=== PATIENT | female | born 1945 | race Caucasian/White ===

== ENCOUNTER → 2017-09-12 | Outpatient (CLI) | payer MEDICARE, OTHER ==
[~2017-09-12] MED LIST: ALBU8HFA2 INH; ALBU90OI INH; ALBU90OI6 INH; AMITIZA PO; ANAS1 PO; ANORO ELLIPTA1 EACH INH; ARNUITY ELLIPT50 MCG IH; ASPI325 PO; ASPI81EC PO; Amitiza24 MCG PO; Amitiza8 MCG PO; Aspir 8181 MG PO; BISA5EC PO; CALCAVITD PO; CELE200 PO; CEPH500 PO; CIPR500 PO; CITA20 PO; DULCOLAX STOOL100 MG PO; FISH1000 PO; FLUSAL115; FLUT44OIA INH; GABA300 PO; GAVILAX17 GM PO; HYDACE5 PO; Kristalose20 GM PO; MELA3 PO; METF500C PO; METO25ER PO; Macrobid 100 M100 MG PO; Neurontin 300300 MG PO; Nitrostat0.4 MG SL; ONDA4 PO; PHENA100 PO; PRAM.125 PO; PRAM.5 PO; PRAV20 PO; PROM25 PO; Phenergan25 M1; Pravastatin Sod40 MG PO; Prinivil10 MG PO; Pyridium100 MG PO; Pyridium200 MG PO; RANI150 PO; TIOT18; TIOT18 IH; UBID10 PO; VENL150ER PO; VITAMIN B-122000 MCG PO; VITAMIN D-32000 UNIT PO; Ventolin/Prove6.7 GM INH; Vitamin C1000 M1 PO; WARF3 PO; WARF4 PO; XARELTO10 MG PO; [UNRECOGNIZED DRUG - OTHER]; [UNRECOGNIZED DRUG - OTHER] PO
== END ==
LOC: LAB EV 14:48
DX: N30.01 Acute cystitis with hematuria (principal)
CPT/HCPCS: 87086

== ENCOUNTER → 2018-01-23 | Outpatient (CLI) | payer MEDICARE, OTHER ==
[~2018-01-23] MED LIST changes: -ARNUITY ELLIPT50 MCG IH; -Amitiza24 MCG PO; -DULCOLAX STOOL100 MG PO; -METO25ER PO; -XARELTO10 MG PO
[2018-01-23 14:54] LABS: BASOPHILS ABSOLUTE AUTO 0.04 K/mm3 (0.00-0.23); BASOPHILS PERCENT AUTO 1 % (0-2); EOSINOPHILS ABSOLUTE AUTO 0.08 K/mm3 (0.00-0.68); EOSINOPHILS PERCENT AUTO 1 % (0-6); Hematocrit 35.5 % (33.0-51.0); Hemoglobin 11.4 g/dL (11.5-16.0); IMMATURE GRAN ABSOLUTE AUTO 0.01 K/mm3 (0.00-0.10); IMMATURE GRAN PERCENT AUTO 0 % (0-1); LYMPHOCYTES ABSOLUTE AUTO 1.28 K/mm3 (0.84-5.20); LYMPHOCYTES PERCENT AUTO 22 % (21-46); MONOCYTES PERCENT AUTO 5 % (4-13); Mean Corpuscular HGB 28.3 pg (26.0-34.0); Mean Corpuscular HGB Conc 32.1 g/dL (31.5-36.5); Mean Corpuscular Volume 88 fL (80-100); Mean Platelet Volume 9.7 fL (9.1-12.4); NEUTROPHILS ABSOLUTE AUTO 4.16 K/mm3 (1.96-9.15); NEUTROPHILS PERCENT AUTO 71 % (41-73); Platelet Count 246 K/mm3 (150-400); RDW Coefficient Variation 13.6 % (11.7-14.2); RDW Standard Deviation 44.1 fL (35.1-46.3); Red Blood Cell Count 4.03 M/mm3 (3.80-5.20); White Blood Cell Count 5.87 K/mm3 (4.00-11.30)
[2018-01-23 15:09] LABS: Albumin, Blood 3.7 g/dL (3.4-5.0); Albumin/Globulin Ratio 1.2 (0.8-1.8); Bilirubin, Total 0.3 mg/dL (0.1-1.0); Calcium, Blood 9.4 mg/dL (8.5-10.1); Globulin, Blood 3.2 g/dL (2.2-4.0); Potassium, Blood 4.2 mmol/L (3.5-5.5); Total Protein, Blood 6.9 g/dL (6.4-8.2)
== END | disposition home or self-care (01) ==
LOC: LAB SHORT 14:50 → LAB EV 14:50
PROVIDERS: Physician Assistant
DX: R10.11 Right upper quadrant pain (principal)
CPT/HCPCS: 80053; 83690; 85025

== ENCOUNTER 2018-09-10 10:30 | Day surgery (SDC) | payer MEDICARE, OTHER ==
[~2018-09-10] VITALS: Ht 170.2 cm; Wt 64.2 kg
[~2018-09-10 10:30] MED LIST changes: +ARNUITY ELLIPT50 MCG IH; +Amitiza24 MCG PO; +DULCOLAX STOOL100 MG PO; +METO25ER PO; +XARELTO10 MG PO
--- NOTE | 2018-09-10 13:57 | NUR ---
09/10/18 Toy7 Harmony Delvalle AT APPROXIMATELY 1304 THE PT BEGAN TO DESATURATE, BAG VALVE MASK APPLIED AND THE PROCEDURE WAS STOPPED UNTIL SATS RETURNED AND SEDATION WAS ADEQUATELY OBTAINED. ADDITIONAL NURSE ORSC.ROSEANNE ENTERED THE ROOM TO HELP WITH AIRWAY AT 1305. CHARGE NURSE NOTIFIED. SATS RETURNED TO GREATER THAN 94% WITH BAG MASK AND JAW LIFT FROM RN. DR LOO ARRIVED AT 1306 TO PROVIDE ANESTHESIA ASSISTANCE. DOSES FROM 1306 ON WERE ORDERED BY DR LOO, INCLUDING 2MG IV VERSED. FROM 1306 THROUGHOUT THE UPPER ENDOSCOPY VSS. PT DID CONTINUE TO MOVE THROUGHOUT THE UPPER ENDOSCOPY AND COLONOSCOPY. SEE NURSES NOTES AND ANESTHESIA RECORD.
--- NOTE | 2018-09-10 15:02 | NUR ---
09/10/18 1502 Harmony Delvalle PT IS RESTING WITH EYES CLOSED AT THIS TIME. VSS. SATS ARE 100% ON 3L O2 VIA NASAL CANNULA SINCE ARRIVING TO STEP DOWN. O2 DISCOUNTINUED AT 1502.
== END 2018-09-10 15:52 | disposition home or self-care (01) ==
LOC: ORSCSDS 10:30
PROVIDERS: Internal Medicine Gastroenterology
PROC: 0DBP8ZX Excision of Rectum, Via Natural or Artificial Opening Endoscopic, Diagnostic (ICD-10-PCS; principal; 2018-09-10 12:00)
PROC: 0DBN8ZX Excision of Sigmoid Colon, Via Natural or Artificial Opening Endoscopic, Diagnostic (ICD-10-PCS; principal; 2018-09-10 12:00)
PROC: 0DBM8ZX Excision of Descending Colon, Via Natural or Artificial Opening Endoscopic, Diagnostic (ICD-10-PCS; principal; 2018-09-10 12:00)
PROC: 0DB68ZX Excision of Stomach, Via Natural or Artificial Opening Endoscopic, Diagnostic (ICD-10-PCS; principal; 2018-09-10 12:00)
PROC: 0DBL8ZX Excision of Transverse Colon, Via Natural or Artificial Opening Endoscopic, Diagnostic (ICD-10-PCS; principal; 2018-09-10 12:00)
PROC: 0DB98ZX Excision of Duodenum, Via Natural or Artificial Opening Endoscopic, Diagnostic (ICD-10-PCS; 2018-09-10 12:00)
PROC: 0DB58ZX Excision of Esophagus, Via Natural or Artificial Opening Endoscopic, Diagnostic (ICD-10-PCS; 2018-09-10 12:00)
PROC: 0D757ZZ Dilation of Esophagus, Via Natural or Artificial Opening (ICD-10-PCS; 2018-09-10 12:00)
DX: R19.7 Diarrhea, unspecified (principal); D12.3 Benign neoplasm of transverse colon; K63.5 Polyp of colon; K62.1 Rectal polyp; R10.13 Epigastric pain; K31.7 Polyp of stomach and duodenum; K21.9 Gastro-esophageal reflux disease without esophagitis; R13.14 Dysphagia, pharyngoesophageal phase; Z80.0 Family history of malignant neoplasm of digestive organs; K22.2 Esophageal obstruction; K64.8 Other hemorrhoids; K64.4 Residual hemorrhoidal skin tags; I10 Essential (primary) hypertension; E11.9 Type 2 diabetes mellitus without complications; J44.9 Chronic obstructive pulmonary disease, unspecified; Z86.73 Personal history of transient ischemic attack (TIA), and cerebral infarction without residual deficits; Z79.899 Other long term (current) drug therapy; Z79.82 Long term (current) use of aspirin
CPT/HCPCS: 82947; 88305; 88342; J2250; J7120

== ENCOUNTER 2018-12-02 05:58 | Day surgery (SDC) | payer MEDICARE, OTHER ==
[~2018-12-02] VITALS: Ht 167.6 cm; Wt 63.8 kg
[~2018-12-02 05:58] MED LIST changes: +ACET325 PO; +FLUT1DIS2 INH; +GABA100 PO; +OMEPRAZOLE20 MG PO
--- NOTE | 2018-12-02 06:50 | NUR ---
Ambulatory in Day Surgery History, Chart, Medications and Allergies reviewed before start of procedure.Patient confirms NPO status and agrees with scheduled surgery. Lungs clear T/O to Auscultation.
--- NOTE | 2018-12-02 08:33 | NUR ---
12/02/18 0833 Nolvia Delgadillo PT RECIEVED SPINAL AT BEGINNING OF CASE. CONVERTED TO GENERAL WITH LMA.
--- NOTE | 2018-12-02 12:03 | NUR ---
ITCHING PATIENT REPORTS ITCHING ON CHEST AND BACK-NO VISIBLE RASH. BENADRYL GIVEN PER PATIENT REQUEST. PATIENT ABLE TO FEEL PAs on bilat legs, patient able to do ankle pumps and wiggle toes
--- NOTE | 2018-12-02 16:06 | NUR ---
SUMMARY PATIENT REPORTS PAIN CONTROLLED TO ACCEPTABLE LEVEL WITH PO PAIN MEDS. PATIENT AMBULATED WITH PT AND NOW SITTING IN CHAIR. LEFT KNEE DRESSING DRY AND INTACT POLAR PACK IN PLACE. PATIENT STATES SHE IS PLEASED WITH HOW WELL SHE IS DOING AFTER SURGERY. PATIENT DENIES NUMBNESS OR TINGLING.
--- NOTE | 2018-12-02 16:30 | NUR ---
ASSUMED CARE ASSUMED CARE FROM CHEMA AT 1615. PT ALERT, RESTING IN CHAIR COMFORTABLY. DENIES SOB OR PAIN.
--- NOTE | 2018-12-02 17:06 | NUR ---
ASSUMED CARE ASSUMED CARE FROM CHEMA AT 1615. PT SLEEPING IN CHAIR WITH FEET ELEVATED AND ICE APPLIED TO LEFT KNEE.
--- NOTE | 2018-12-02 19:23 | NUR ---
SHIFT SUMMARY SINCE ASSUMING CARE PT AMBULATED TO BATHROOM AND ABLE TO VOID. NOW IS RESTING IN CHAIR WITH ICE APPLIED TO LEFT KNEE. PATIENT MEDICATED WITH ONE NORCO. C/O HEADACHE, ICE PACK GIVEN. TOLERATING DIET WELL.
--- NOTE | 2018-12-03 02:59 | NUR ---
R PAIN IS BETTER IN 45 MIN. RN NOTIFIED
[2018-12-03 03:53] LABS: BASOPHILS ABSOLUTE AUTO 0.01 K/mm3 (0.00-0.23); BASOPHILS PERCENT AUTO 0 % (0-2); EOSINOPHILS ABSOLUTE AUTO 0.04 K/mm3 (0.00-0.68); EOSINOPHILS PERCENT AUTO 1 % (0-6); Hematocrit 31.6 % (33.0-51.0); Hemoglobin 9.9 g/dL (11.5-16.0); IMMATURE GRAN ABSOLUTE AUTO 0.02 K/mm3 (0.00-0.10); IMMATURE GRAN PERCENT AUTO 0 % (0-1); LYMPHOCYTES ABSOLUTE AUTO 1.28 K/mm3 (0.84-5.20); LYMPHOCYTES PERCENT AUTO 18 % (21-46); MONOCYTES ABSOLUTE AUTO 0.41 K/mm3 (0.16-1.47); MONOCYTES PERCENT AUTO 6 % (4-13); Mean Corpuscular HGB 28.6 pg (26.0-34.0); Mean Corpuscular HGB Conc 31.3 g/dL (31.5-36.5); Mean Corpuscular Volume 91 fL (80-100); Mean Platelet Volume 9.7 fL (9.1-12.4); NEUTROPHILS ABSOLUTE AUTO 5.53 K/mm3 (1.96-9.15); NEUTROPHILS PERCENT AUTO 76 % (41-73); Platelet Count 202 K/mm3 (150-400); RDW Coefficient Variation 13.1 % (11.7-14.2); RDW Standard Deviation 43.5 fL (35.1-46.3); Red Blood Cell Count 3.46 M/mm3 (3.80-5.20); White Blood Cell Count 7.29 K/mm3 (4.00-11.30)
[2018-12-03 04:09] LABS: Bun/Creatinine Ratio 20.2 (12.0-20.0); Calcium, Blood 8.3 mg/dL (8.5-10.1); Creatinine, Blood 1.09 mg/dL (0.40-1.00); Magnesium, Blood 1.6 mg/dL (1.6-2.4); Potassium, Blood 4.2 mmol/L (3.5-5.5)
--- NOTE | 2018-12-03 05:58 | NUR ---
SUMMARY: PT IS POD1 L TKA. DOING WELL. VSS, A/O. PT ABLE TO SLEEP TONIGHT. MORE PAINFUL THIS AM, GIVEN 0.5 OF DILAUDID AND PT REPORTS PAIN BETTER AFTER A SHORT WALK IN [place]. MOVES WELL, ALTHOUGH PT RESTLESS LEGS MAKE BALANCE DIFFICULT AT TIMES. SURGICAL SITE WNL. PT KNEE ICED/ELEVATED. NO ACUTE CONCERNS AT THIS TIME.
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
[2018-12-03] MEDS ORDERED: CLIN300 PO (15:23)
[2018-12-03] MEDS ORDERED: LEVFLO500 PO (15:24)
[2018-12-03] MEDS ORDERED: Norco 7.5-3251 EACH PO (15:25)
--- NOTE | 2018-12-03 15:53 | NUR ---
DISCHARGE: PT EATING AND DRINKING, VOIDING, PASSING GAS. PT REPORTS PAIN TOLERABLE ON PO PAIN MEDICATION. PT REPORTS WILL F/U WITH DR REGARDING MEDICATIONS, CPM, H.H.. PT REPORTS HAVING APPR EQUIP AT HOME. PT BEEN CLEARED BY THERAPY TO GO HOME. PT/FAMILY REPORTS UNDERSTANDING OF ICE MACHINE, DRESSING CHANGES AND OTHER DISCHARGE INSTRUCTIONS. PT SENT WITH ICE MACHINE AND DRESSING SUPPLIES. PT HAS OWN WALKER HERE. PT GIVEN SCRIPTS.
== END 2018-12-03 16:19 | disposition home or self-care (01) ==
LOC: ORSCMMR 05:58 → ORD 07:30 → ORSCMMR 07:30 → SURS 10:58 → ORSCMMR 12-03 16:19 → SURS 12-03 16:19
PROVIDERS: Orthopaedic Surgery
PROC: 0SRD0J9 Replacement of Left Knee Joint with Synthetic Substitute, Cemented, Open Approach (ICD-10-PCS; principal; 2018-12-03)
PROC: 8E0YXBZ Computer Assisted Procedure of Lower Extremity (ICD-10-PCS; principal; 2018-12-03)
DX: M17.12 Unilateral primary osteoarthritis, left knee (principal); E11.9 Type 2 diabetes mellitus without complications; I10 Essential (primary) hypertension; E78.5 Hyperlipidemia, unspecified; J44.9 Chronic obstructive pulmonary disease, unspecified; G47.33 Obstructive sleep apnea (adult) (pediatric); K21.9 Gastro-esophageal reflux disease without esophagitis; G25.81 Restless legs syndrome; Z86.73 Personal history of transient ischemic attack (TIA), and cerebral infarction without residual deficits; Z86.711 Personal history of pulmonary embolism; F41.8 Other specified anxiety disorders; F43.10 Post-traumatic stress disorder, unspecified; Z79.01 Long term (current) use of anticoagulants; Z79.82 Long term (current) use of aspirin; Z79.84 Long term (current) use of oral hypoglycemic drugs; Z79.899 Other long term (current) drug therapy
CPT/HCPCS: 36415; 73560-LT; 80048; 82947; 83735; 85025; 88300; 94640; 94760; 97110; 97116; 97162; 97530; C1713; C1776; J0171; J0690; J1100; J1170; J1885; J2370; J2405; J2704; J2795; J3010; J3370; J7030; J7120; Q0163

== ENCOUNTER → 2018-12-27 | Outpatient (CLI) | payer MEDICARE, OTHER ==
[~2018-12-27] MED LIST changes: +ANASTROZOLE PO; +ASCO500 PO; +BENEFIBER152 GM PO; +CALCIUM + D3 E1 EACH PO; +CLIN300 PO; +COENZYME Q10100 MG PO; +DOCU100 PO; +FISH OIL 1,0001 EAC1 PO; +Flonase 0.05% N16 GM; +GLUCOSAMINE DA1 EACH PO; +Glucophage Xr750 MG PO; +LEVFLO500 PO; +LOW DOSE ASPIRI81 MG PO; +Lopressor 25 mg25 MG PO; +MAGNESIUM250 MG PO; +MIRALAX17 GM PO; +NITR.4SL SL; +Norco 7.5-3251 EACH PO; +Pravachol40 MG PO; +Ranitidine HCl150 M1 PO; +VITAMIN B-121000 MCG PO; +VITAMIN D35000 UNIT PO; +XARELTO20 MG PO; +ZESTRIL40 MG PO
[2018-12-29 23:01] LABS: Adenovirus F 40/41 Not Detected (NOT DETECT); Astrovirus Not Detected (NOT DETECT); Campylobacter Sp Not Detected (NOT DETECT); Cryptosporidium Not Detected (NOT DETECT); Cyclospora Cayetanensis Not Detected (NOT DETECT); E. Coli O157 Not Detected (NOT DETECT); Entamoeba Histolytica Not Detected (NOT DETECT); Enteroaggregative E. coli-EAEC Not Detected (NOT DETECT); Enteropathogenic E. coli-EPEC Not Detected (NOT DETECT); Enterotoxigenic E. coli-ETEC Not Detected (NOT DETECT); Giardia Lamblia Not Detected (NOT DETECT); Norovirus GI/GII Not Detected (NOT DETECT); Plesiomonas Shigelloides Not Detected (NOT DETECT); Rotavirus A Not Detected (NOT DETECT); Salmonella Sp Not Detected (NOT DETECT); Sapovirus Not Detected (NOT DETECT); Shiga Toxin-prod E. coli-STEC Not Detected (NOT DETECT); Shigella/Enteroin E. coli-EIEC Not Detected (NOT DETECT); Vibrio Cholerae Not Detected (NOT DETECT); Vibrio Sp Not Detected (NOT DETECT); Yersinia Enterocolitica Not Detected (NOT DETECT)
== END | disposition home or self-care (01) ==
LOC: LAB 18:00 → LAB SHORT 18:00
PROVIDERS: Family Medicine
DX: R19.7 Diarrhea, unspecified (principal)
CPT/HCPCS: 87507

== ENCOUNTER 2019-01-29 12:05 | Day surgery (SDC) | payer MEDICARE, OTHER ==
[~2019-01-29] VITALS: Ht 170.2 cm; Wt 63.7 kg
--- NOTE | 2019-01-29 13:05 | NUR ---
01/29/19 1305 Viv Dominguez ONE IV BAD DUE TO INFULTRATION, ONE IV GOOD BY MI IN AC DIRETCTED BY NURSE OF LOCATION
== END 2019-01-29 14:55 | disposition home or self-care (01) ==
LOC: ORSCSDS 12:05
PROVIDERS: Internal Medicine Gastroenterology
PROC: 0DBN8ZX Excision of Sigmoid Colon, Via Natural or Artificial Opening Endoscopic, Diagnostic (ICD-10-PCS; principal; 2019-01-29 13:30)
DX: Z86.010 Personal history of colon polyps (principal); Z80.0 Family history of malignant neoplasm of digestive organs; D12.5 Benign neoplasm of sigmoid colon; K57.30 Diverticulosis of large intestine without perforation or abscess without bleeding; I10 Essential (primary) hypertension; K64.8 Other hemorrhoids; J44.9 Chronic obstructive pulmonary disease, unspecified; E11.9 Type 2 diabetes mellitus without complications; Z86.73 Personal history of transient ischemic attack (TIA), and cerebral infarction without residual deficits; K21.9 Gastro-esophageal reflux disease without esophagitis; Z79.01 Long term (current) use of anticoagulants; E78.5 Hyperlipidemia, unspecified; Z79.899 Other long term (current) drug therapy; Z79.82 Long term (current) use of aspirin
CPT/HCPCS: 82947; 88305; J2405; J2704; J7120

== ENCOUNTER → 2019-04-15 | Outpatient (CLI) | payer MEDICARE, OTHER ==
[2019-04-15 13:07] LABS: BASOPHILS ABSOLUTE AUTO 0.02 K/mm3 (0.00-0.23); BASOPHILS PERCENT AUTO 0 % (0-2); EOSINOPHILS ABSOLUTE AUTO 0.08 K/mm3 (0.00-0.68); EOSINOPHILS PERCENT AUTO 1 % (0-6); Hematocrit 35.6 % (33.0-51.0); Hemoglobin 11.2 g/dL (11.5-16.0); IMMATURE GRAN ABSOLUTE AUTO 0.03 K/mm3 (0.00-0.10); IMMATURE GRAN PERCENT AUTO 0 % (0-1); LYMPHOCYTES ABSOLUTE AUTO 0.95 K/mm3 (0.84-5.20); LYMPHOCYTES PERCENT AUTO 12 % (21-46); MONOCYTES ABSOLUTE AUTO 0.48 K/mm3 (0.16-1.47); MONOCYTES PERCENT AUTO 6 % (4-13); Mean Corpuscular HGB 26.7 pg (26.0-34.0); Mean Corpuscular HGB Conc 31.5 g/dL (31.5-36.5); Mean Corpuscular Volume 85 fL (80-100); Mean Platelet Volume 10.3 fL (9.1-12.4); NEUTROPHILS ABSOLUTE AUTO 6.09 K/mm3 (1.96-9.15); NEUTROPHILS PERCENT AUTO 80 % (41-73); Platelet Count 229 K/mm3 (150-400); RDW Coefficient Variation 14.8 % (11.7-14.2); RDW Standard Deviation 45.1 fL (35.1-46.3); Red Blood Cell Count 4.19 M/mm3 (3.80-5.20); White Blood Cell Count 7.65 K/mm3 (4.00-11.30)
[2019-04-15 13:24] LABS: Alanine Aminotransfer (ALT/SGP 15 U/L (12-78); Albumin, Blood 3.3 g/dL (3.4-5.0); Albumin/Globulin Ratio 0.9 (0.8-1.8); Alk Phos 81 U/L (40-126); Anion Gap 7 mmol/L (6-16); Aspartate Aminotrans (AST/SGOT 13 U/L (12-37); Bilirubin, Total 0.3 mg/dL (0.1-1.0); Blood Urea Nitrogen 17 mg/dL (8-24); Bun/Creatinine Ratio 14.5 (12.0-20.0); CO2, Blood 28 mmol/L (21-32); Calcium, Blood 8.7 mg/dL (8.5-10.1); Chloride, Blood 105 mmol/L (98-108); Creatinine, Blood 1.17 mg/dL (0.40-1.00); Globulin, Blood 3.6 g/dL (2.2-4.0); Glomerular Filtration Rate 45 (60-); Glucose, Blood 107 mg/dL (70-99); Potassium, Blood 4.5 mmol/L (3.5-5.5); Sodium, Blood 140 mmol/L (136-145); Total Protein, Blood 6.9 g/dL (6.4-8.2)
[2019-04-15 13:25] LABS: Troponin I <0.017 ng/mL (0.000-0.040)
== END | disposition home or self-care (01) ==
LOC: LAB EV 13:01 → LAB SHORT 13:01
PROVIDERS: Physician Assistant
DX: R07.89 Other chest pain (principal)
CPT/HCPCS: 80053; 83880; 84484; 85025

== ENCOUNTER 2019-09-14 05:23 | Observation (INO) | payer MEDICARE, OTHER ==
[~2019-09-14] VITALS: Ht 170.2 cm; Wt 68.0 kg
[~2019-09-14 05:23] MED LIST changes: +XARELTO15 MG PO; -XARELTO20 MG PO
[2019-09-14] MEDS ORDERED: Amitiza24 MCG (05:46)
[2019-09-14] MEDS ORDERED: CITA20 PO (05:47)
[2019-09-14] MEDS ORDERED: OMEP20ER PO (05:48)
[2019-09-14] MEDS ORDERED: ACET325 PO (06:10)
[2019-09-14] MEDS ORDERED: ALBU90OI INH (06:11)
[2019-09-14 06:29] LABS: BASOPHILS ABSOLUTE AUTO 0.03 K/mm3 (0.00-0.23); BASOPHILS PERCENT AUTO 1 % (0-2); EOSINOPHILS ABSOLUTE AUTO 0.16 K/mm3 (0.00-0.68); EOSINOPHILS PERCENT AUTO 3 % (0-6); Hematocrit 34.9 % (33.0-51.0); Hemoglobin 10.8 g/dL (11.5-16.0); IMMATURE GRAN ABSOLUTE AUTO 0.01 K/mm3 (0.00-0.10); IMMATURE GRAN PERCENT AUTO 0 % (0-1); LYMPHOCYTES ABSOLUTE AUTO 2.06 K/mm3 (0.84-5.20); LYMPHOCYTES PERCENT AUTO 36 % (21-46); MONOCYTES ABSOLUTE AUTO 0.45 K/mm3 (0.16-1.47); MONOCYTES PERCENT AUTO 8 % (4-13); Mean Corpuscular HGB 26.9 pg (26.0-34.0); Mean Corpuscular HGB Conc 30.9 g/dL (31.5-36.5); Mean Corpuscular Volume 87 fL (80-100); Mean Platelet Volume 10.2 fL (9.1-12.4); NEUTROPHILS ABSOLUTE AUTO 2.96 K/mm3 (1.96-9.15); NEUTROPHILS PERCENT AUTO 52 % (41-73); Platelet Count 253 K/mm3 (150-400); RDW Standard Deviation 44.8 fL (35.1-46.3); Red Blood Cell Count 4.02 M/mm3 (3.80-5.20); White Blood Cell Count 5.67 K/mm3 (4.00-11.30)
[2019-09-14 06:44] LABS: Alanine Aminotransfer (ALT/SGP 12 U/L (12-78); Albumin, Blood 3.6 g/dL (3.4-5.0); Albumin/Globulin Ratio 1.2 (0.8-1.8); Alk Phos 48 U/L (50-136); Anion Gap 5 mmol/L (6-16); Aspartate Aminotrans (AST/SGOT 10 U/L (12-37); Bilirubin, Total 0.3 mg/dL (0.1-1.0); Blood Urea Nitrogen 26 mg/dL (8-24); Bun/Creatinine Ratio 25.2 (12.0-20.0); CO2, Blood 27 mmol/L (21-32); Calcium, Blood 8.9 mg/dL (8.5-10.1); Chloride, Blood 109 mmol/L (98-108); Creatinine, Blood 1.03 mg/dL (0.40-1.00); Globulin, Blood 3.1 g/dL (2.2-4.0); Glomerular Filtration Rate 55 (60-); Glucose, Blood 99 mg/dL (70-99); Potassium, Blood 4.3 mmol/L (3.5-5.5); Sodium, Blood 141 mmol/L (136-145); Total Protein, Blood 6.7 g/dL (6.4-8.2); Troponin I <0.015 ng/mL (0.000-0.040)
--- NOTE | 2019-09-14 18:00 | NUR ---
PT ARRIVED TO THE UNIT VIA WHEELCHAIR AT 12:19. ORIENTED TO THE ROOM. RECIEVED CHEMICAL STRESS TEST THIS AFTERNOON. PT PROVIDED FOOD UPON RETURN TO THE UNIT. SHE WILL BE NO CAFFINE AFTER MIDNIGHT AND NPO AFTER BREAKFAST FOR SECOND PART OF STRESS TEST.
--- NOTE | 2019-09-15 04:26 | NUR ---
SHIFT SUMMARY ADMITTED FOR CHEST PAIN. FULL CODE. STRESS TEST PART 2 TO BE PERFORMED TODAY. NO COFFEE OR CHOCOLATE AFTER MIDNIGHT THIS SHIFT. PT WILL BE NPO FOLLOWING BREAKFAST. LUNCH TO BE HELD FOR AFTER TEST. PT IS ON RA, GLUCOSE MONITORING ACHS, A&O X4, INDEPENDENT. HX: FALLS @ HOME, CVA, COPD, DM2 - NON INSULIN DEPENDENT, DVT, PE, HYPERLIPIDEMIA, HTN, CAD, SCOLIOSIS. STATES SHE HAS CALF PAIN IN RIGHT LEG, STATES SHE HAS PERIODS OF HYPOTENSION.
[2019-09-15 05:34] LABS: BASOPHILS ABSOLUTE AUTO 0.03 K/mm3 (0.00-0.23); BASOPHILS PERCENT AUTO 1 % (0-2); EOSINOPHILS ABSOLUTE AUTO 0.11 K/mm3 (0.00-0.68); EOSINOPHILS PERCENT AUTO 2 % (0-6); Hematocrit 36.5 % (33.0-51.0); IMMATURE GRAN PERCENT AUTO 0 % (0-1); LYMPHOCYTES ABSOLUTE AUTO 1.79 K/mm3 (0.84-5.20); LYMPHOCYTES PERCENT AUTO 36 % (21-46); MONOCYTES PERCENT AUTO 8 % (4-13); Mean Corpuscular HGB 26.4 pg (26.0-34.0); Mean Corpuscular HGB Conc 30.1 g/dL (31.5-36.5); Mean Corpuscular Volume 88 fL (80-100); Mean Platelet Volume 10.1 fL (9.1-12.4); NEUTROPHILS PERCENT AUTO 53 % (41-73); Platelet Count 234 K/mm3 (150-400); RDW Coefficient Variation 13.9 % (11.7-14.2); RDW Standard Deviation 44.5 fL (35.1-46.3); Red Blood Cell Count 4.17 M/mm3 (3.80-5.20); White Blood Cell Count 4.93 K/mm3 (4.00-11.30)
[2019-09-15 05:56] LABS: Bun/Creatinine Ratio 25.5 (12.0-20.0); Calcium, Blood 8.4 mg/dL (8.5-10.1); Creatinine, Blood 1.1 mg/dL (0.40-1.00); Potassium, Blood 5.2 mmol/L (3.5-5.5)
--- NOTE | 2019-09-15 06:52 | NUR ---
Pt. gave permission for care 09/15/19 at 0650.
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
--- NOTE | 2019-09-15 18:08 | NUR ---
DISCHARGE NOTE PT ALERT, ORIENTED, AND COOPERATIVE WITH CARE THIS SHIFT. PT DENIED ANY ISSUES OF CHEST PAIN THIS SHIFT. PT HAD A DOPPLER ULTRASOUND ON HER LLE THIS SHIFT FOR SWELLING AND PAIN. PT ALSO HAD AN ECHOCARDIOGRAM THIS SHIFT. SHRIMP TRAWLER IN THE ROOM THIS AFTERNOON TO SEE PT. PT DISCHARGED TO HOME. PT PROVIDED WITH DISCHARGE INSTRUCTIONS AND EDUCATION. PT STATED NO QUESTIONS AT THIS TIME. IV REMOVED PRIOR TO DISCHARGE. PT TO TAXI BY VICENTE Stinson RN. PT DRESSED AND TO WHEELCHAIR INDEPENDENTLY.
== END 2019-09-15 18:02 | disposition home or self-care (01) ==
LOC: ER 05:23 → MEDS 05:24
PROVIDERS: Emergency Medicine; ADMIT Student in an Organized Health Care Education/Training Program
DX: R07.89 Other chest pain (principal); N17.9 Acute kidney failure, unspecified; E11.9 Type 2 diabetes mellitus without complications; R60.9 Edema, unspecified; I10 Essential (primary) hypertension; Z86.711 Personal history of pulmonary embolism; Z88.8 Allergy status to other drugs, medicaments and biological substances; Z88.2 Allergy status to sulfonamides; Z91.041 Radiographic dye allergy status; Z86.73 Personal history of transient ischemic attack (TIA), and cerebral infarction without residual deficits
CPT/HCPCS: 36415; 71046; 80048; 80053; 82947; 84484; 85025; 93005; 93010; 93306; 93971; 99285-25; A9270; A9270-GY; G0378

== ENCOUNTER 2019-09-30 14:00 | Emergency (ER) | payer MEDICARE, OTHER ==
[~2019-09-30] VITALS: Ht 170.2 cm; Wt 65.8 kg
[~2019-09-30 14:00] MED LIST changes: +Amitiza24 MCG; +OMEP20ER PO
[2019-09-30] MEDS ORDERED: Norco 5-325 Ta1 EACH PO (18:01)
== END 2019-09-30 18:23 | disposition home or self-care (01) ==
LOC: ER 14:00
DX: M54.32 Sciatica, left side (principal); E11.9 Type 2 diabetes mellitus without complications; I10 Essential (primary) hypertension; E78.5 Hyperlipidemia, unspecified
CPT/HCPCS: 72100; 73502; 99283-25; A9270-GY

== ENCOUNTER 2021-11-25 09:16 | Observation (INO) | payer MEDICARE, OTHER ==
[~2021-11-25] VITALS: Ht 160 cm; Wt 64.9 kg
[~2021-11-25 09:16] MED LIST changes: +Norco 5-325 Ta1 EACH PO
[2021-11-25] MEDS ORDERED: PRAM.125 PO (09:30)
[2021-11-25] MEDS ORDERED: OMEP20ER PO (09:30)
[2021-11-25] MEDS ORDERED: CELEXA40 M1 PO (09:30)
[2021-11-25] MEDS ORDERED: LINZESS290 MCG PO (09:31)
[2021-11-25] MEDS ORDERED: Metformin HCl500 M1 PO (09:31)
[2021-11-25] MEDS ORDERED: FLONASE ALLERG9.9 ML (09:32)
[2021-11-25] MEDS ORDERED: METO25ER PO (09:33)
[2021-11-25] MEDS ORDERED: ASPI81CH PO (09:33)
[2021-11-25] MEDS ORDERED: MELATONIN5 M1 PO (09:34)
[2021-11-25] MEDS ORDERED: PRAV20 PO (09:34)
[2021-11-25] MEDS ORDERED: XARELTO10 M3 PO (09:34)
[2021-11-25] MEDS ORDERED: METF500 PO (09:35)
[2021-11-25 09:43] LABS: BASOPHILS ABSOLUTE AUTO 0.02 K/mm3 (0.00-0.23); BASOPHILS PERCENT AUTO 0 % (0-2); EOSINOPHILS ABSOLUTE AUTO 0.09 K/mm3 (0.00-0.68); EOSINOPHILS PERCENT AUTO 2 % (0-6); Hematocrit 35.3 % (33.0-51.0); IMMATURE GRAN ABSOLUTE AUTO 0.01 K/mm3 (0.00-0.10); IMMATURE GRAN PERCENT AUTO 0 % (0-1); LYMPHOCYTES ABSOLUTE AUTO 1.97 K/mm3 (0.84-5.20); LYMPHOCYTES PERCENT AUTO 33 % (21-46); MONOCYTES PERCENT AUTO 5 % (4-13); Mean Corpuscular HGB 26.4 pg (26.0-34.0); Mean Corpuscular HGB Conc 31.2 g/dL (31.5-36.5); Mean Corpuscular Volume 85 fL (80-100); Mean Platelet Volume 9.7 fL (9.1-12.4); NEUTROPHILS ABSOLUTE AUTO 3.63 K/mm3 (1.96-9.15); NEUTROPHILS PERCENT AUTO 60 % (41-73); Platelet Count 304 K/mm3 (150-400); RDW Coefficient Variation 13.8 % (11.7-14.2); Red Blood Cell Count 4.17 M/mm3 (3.80-5.20); White Blood Cell Count 6.02 K/mm3 (4.00-11.30)
[2021-11-25 09:58] LABS: Alanine Aminotransfer (ALT/SGP 17 U/L (12-78); Albumin, Blood 3.4 g/dL (3.4-5.0); Albumin/Globulin Ratio 0.9 (0.8-1.8); Alk Phos 143 U/L (50-136); Anion Gap 6 mmol/L (6-16); Aspartate Aminotrans (AST/SGOT 12 U/L (12-37); Bilirubin, Total 0.3 mg/dL (0.1-1.0); Blood Urea Nitrogen 19 mg/dL (8-24); Bun/Creatinine Ratio 21.2 (12.0-20.0); CO2, Blood 26 mmol/L (21-32); Chloride, Blood 106 mmol/L (98-108); Globulin, Blood 3.7 g/dL (2.2-4.0); Glomerular Filtration Rate >60 (60-); Glucose, Blood 113 mg/dL (70-99); Potassium, Blood 4.4 mmol/L (3.5-5.5); Sodium, Blood 138 mmol/L (136-145); Total Protein, Blood 7.1 g/dL (6.4-8.2)
[2021-11-25] MEDS ORDERED: BREO ELLIPTA 11 EAC1 INH (12:54)
[2021-11-25] MEDS ORDERED: SUCR1 PO (12:55)
[2021-11-25] MEDS ORDERED: NITR.4SL (12:55)
[2021-11-25] MEDS ORDERED: ALBU90OI INH (12:56)
[2021-11-25] MEDS ORDERED: ACET500 PO (12:56)
--- NOTE | 2021-11-25 14:55 | NUR ---
SHIFT SUMMARY 1445 RECEIVED PT TO RM 328 VIA SHASHI FROM ER. PT UNABLE TO SLIDE TO BED D/T SACRAL FX. PT ABLE TO STAND PIVOT TO BED. PT ADMITTED FOR OBS WITH C/O CP. PT WITH HX OF HTN, TIA'S, CVA X1 AND PE'S. PT USING FWW AT BASELINE, BUT REPORTS DIFFICULTY AMBULATING SINCE FALL AND FX. PER PT AND ER REPORT, CP MOSTLY RESOLVED AFTER NITRO AT HOME AND ENROUTE VIA EMS. PT TO HAVE STRESS TEST IN AM. NPO AFTER MN AND NO CAFFEINE. PT VERBALIZED UNDERSTANDING. REQUESTED PAIN PILL FOR BACK PAIN. DR ROSSI NOTIFIED AND CAME AND TALKED WITH PT. NEW ORDERS PLACED. PT MEDICATED PER EMAR AND PT REQUEST. LUNCH AND ICE WATER GIVEN. PT NOTIFIED FAMILY OF RM AND PLAN OF CARE. DENIED FURTHER NEEDS. PT NOW RESTING QUIELTY AT THIS TIME. CALL LT IN REACH.
--- NOTE | 2021-11-25 17:09 | NUR ---
D/C ORDERS PLACED BY DR BAÑUELOS. D/C INSTRUCTIONS REVIEWED WITH PT AND DAUGHTER. PT ASSISTED OUT TO DAUGHTERS CAR VIA W/C.
--- NOTE | 2021-11-26 03:55 | NUR ---
WATERPROOFER HELPER SUMMARY PT A/OX4. PT HX COPD, DT2, CVA, PE, GERD, AND CA. PT HAS A SACRAL FX. ADMIT FOLLWOING EPISODE OF CHEST PAIN. SCHEDULED FOR STRESS TEST IN THE AM. PT REQUESTED/ATE SANDWICH AND ORANGE JUICE FOR SNACK BEFORE BED. NPO SINCE MIDNIGHT. PT REPORTED NO CHEST PAIN BUT C/O OF SHARP PAIN W/DEEP BREATH. PT ABLE TO ADVOCATE FOR NEEDS. RESTED COMFORTABLY THROUGH THE NIGHT. CALL LIGHT IN REACH.
--- NOTE | 2021-11-26 10:00 | NUR ---
Echocardiogram completed.
--- NOTE | 2021-11-26 15:48 | NUR ---
AT THE BEGINNING OF THE SHIFT PT HAD A ORDER FOR ECHOCARDIOGRAM. PT WAS NPO SINCE MIDNIGHT.PT HAD A STRESS TEST DONE FOR ANGIA AT REST. PT WAS ALERT AND ORIENTATED. PT RECIVED CHEST X-RAYS IN THE AFTERNOON. PT ATE MEALS THROUGHOUT THE SHIFT. PT TELE READING WAS NR. PT AMBULATES WITH 1 PERSON STAND BY WITH FWW. PT IV FLUSHED WITH 10ML NS AND INTACTED. PT HAD NO COMPLAINTS OF PAIN THROUGHOUT SHIFT. PT RESTING IN BED WITH CALL LIGHT IN REACH AND WILL CONTINUED TO BE MONITORED.
--- NOTE | 2021-11-26 15:48 | NUR ---
SHIFT SUMMARY PT AWAKE AT START OF SHIFT, SITTING UP IN BED WAITING FOR FIRST PART OF STRESS TEST. PT REMAINED NPO SINCE MN AND UNTIL NUC MED REPORTED PT COULD HAVE BREAKFAST. PT TOLERATED STRESS TEST'S WELL THRU OUT THE DAY. PT DID REPORT NOT LIKING ONE PART OF TEST THIS AFTERNOON, BUT CAFFEINE GIVEN AND RESOLVED SYMPTOMS. PT REPORTED FEELING FINE AFTERWARDS. PT HAS CONTINUED TO DENY ANY CP TODAY AT ALL. A&O, SITTING UPRIGHT IN BED TALKING OR TEXTING ON PHONE WHEN NOT HAVING TESTS. REQUESTED ICE WATER AND DENIED FURTHER NEEDS TO PRESENT. CALL LT IN REACH.
--- NOTE | 2021-11-26 18:27 | NUR ---
PT COMPLETED CARDIAC TESTS AND ABLE TO GO HOME. D/C ORDERS PLACED. NO NEW MEDICATIONS. PT TO F/U WITH [facility] IN 1 WEEK. PT'S FRIEND HERE TO PICK HER UP. ASSISTED OUT VIA W/C. VERY PLEASANT AND GRATEFUL FOR CARE.
== END 2021-11-26 18:22 | disposition home or self-care (01) ==
LOC: ER 09:16 → MEDS 09:17
PROVIDERS: Emergency Medicine; ADMIT Family Medicine
DX: I25.110 Atherosclerotic heart disease of native coronary artery with unstable angina pectoris (principal); J44.9 Chronic obstructive pulmonary disease, unspecified; E11.9 Type 2 diabetes mellitus without complications; K21.9 Gastro-esophageal reflux disease without esophagitis; E78.5 Hyperlipidemia, unspecified; M41.9 Scoliosis, unspecified; I11.9 Hypertensive heart disease without heart failure; R00.0 Tachycardia, unspecified; S32.19XA Other fracture of sacrum, initial encounter for closed fracture; Z86.73 Personal history of transient ischemic attack (TIA), and cerebral infarction without residual deficits; Z86.711 Personal history of pulmonary embolism; Z88.2 Allergy status to sulfonamides; Z88.6 Allergy status to analgesic agent; Z88.8 Allergy status to other drugs, medicaments and biological substances; Z79.82 Long term (current) use of aspirin; Z79.84 Long term (current) use of oral hypoglycemic drugs; Z95.5 Presence of coronary angioplasty implant and graft; Z96.652 Presence of left artificial knee joint; Z66 Do not resuscitate
CPT/HCPCS: 71045; 78452; 80053; 83880; 84484; 85025; 85379; 93005; 93010; 93017; 93306; A9270; A9500; J0706; J2785

== ENCOUNTER → 2021-12-18 | Outpatient (CLI) | payer MEDICARE, OTHER ==
[~2021-12-18] MED LIST changes: +ACET500 PO; +ASPI81CH PO; +BREO ELLIPTA 11 EAC1 INH; +CELEXA40 M1 PO; +FLONASE ALLERG9.9 ML; +LINZESS290 MCG PO; +MELATONIN5 M1 PO; +METF500 PO; +Metformin HCl500 M1 PO; +NITR.4SL; +SUCR1 PO; +XARELTO10 M3 PO
[2021-12-18 18:50] LABS: Microalb/Creat Ratio UR, Rand 33.286 mg/g (0.000-30.000); Microalbumin, Random Urine 46.6 mg/L (0.000-20.000)
== END ==
LOC: LAB SHORT 12:15 → LAB 12:15
PROVIDERS: Family Medicine
DX: E11.9 Type 2 diabetes mellitus without complications (principal)
CPT/HCPCS: 82043; 82570

== ENCOUNTER 2022-01-24 11:42 | Emergency (ER) | payer MEDICARE, OTHER ==
[~2022-01-24] VITALS: Ht 170.2 cm; Wt 63.5 kg
[2022-01-24] MEDS ORDERED: Robaxin750 MG PO (14:24)
[2022-01-24] MEDS ORDERED: DIAZ2 PO (15:40)
== END 2022-01-24 16:40 | disposition home or self-care (01) ==
LOC: ER 11:42
DX: M54.42 Lumbago with sciatica, left side (principal); R10.2 Pelvic and perineal pain; J44.9 Chronic obstructive pulmonary disease, unspecified; E11.9 Type 2 diabetes mellitus without complications; K21.9 Gastro-esophageal reflux disease without esophagitis; E78.5 Hyperlipidemia, unspecified; Z88.2 Allergy status to sulfonamides; Z88.8 Allergy status to other drugs, medicaments and biological substances
CPT/HCPCS: 73502; A9270; J1170; J2250

== ENCOUNTER 2023-02-16 19:00 | Inpatient (IN) | payer MEDICARE, OTHER ==
[~2023-02-16] VITALS: Ht 170.2 cm; Wt 73.3 kg
[~2023-02-16 19:00] MED LIST changes: +CARVEDILOL6.25 MG PO; +DIAZ2 PO; +DOC250 PO; +ESCITALOPRAM OXA5 MG PO; +FAMO20 PO; +Robaxin750 MG PO
[2023-02-16 19:19] LABS: BASOPHILS ABSOLUTE AUTO 0.03 K/mm3 (0.00-0.23); BASOPHILS PERCENT AUTO 0 % (0-2); EOSINOPHILS ABSOLUTE AUTO 0.17 K/mm3 (0.00-0.68); EOSINOPHILS PERCENT AUTO 3 % (0-6); Hematocrit 39.2 % (33.0-51.0); Hemoglobin 12.4 g/dL (11.5-16.0); IMMATURE GRAN ABSOLUTE AUTO 0.02 K/mm3 (0.00-0.10); IMMATURE GRAN PERCENT AUTO 0 % (0-1); LYMPHOCYTES ABSOLUTE AUTO 2.17 K/mm3 (0.84-5.20); LYMPHOCYTES PERCENT AUTO 32 % (21-46); MONOCYTES ABSOLUTE AUTO 0.41 K/mm3 (0.16-1.47); MONOCYTES PERCENT AUTO 6 % (4-13); Mean Corpuscular HGB 26.8 pg (26.0-34.0); Mean Corpuscular HGB Conc 31.6 g/dL (31.5-36.5); Mean Corpuscular Volume 85 fL (80-100); NEUTROPHILS PERCENT AUTO 59 % (41-73); Platelet Count 232 K/mm3 (150-400); RDW Coefficient Variation 15.7 % (11.7-14.2); RDW Standard Deviation 48.6 fL (35.1-46.3); Red Blood Cell Count 4.63 M/mm3 (3.80-5.20)
[2023-02-16 19:32] LABS: Albumin/Globulin Ratio 1.1 (0.8-1.8); Bilirubin, Total 0.2 mg/dL (0.1-1.0); Bun/Creatinine Ratio 24.8 (12.0-20.0); Creatinine, Blood 1.05 mg/dL (0.40-1.00); Globulin, Blood 3.5 g/dL (2.2-4.0); Potassium, Blood 4.7 mmol/L (3.5-5.5); Total Protein, Blood 7.5 g/dL (6.4-8.2)
[2023-02-16 19:45] LABS: International Normalized Ratio 0.96; Prothrombin Time Results 10.1 Sec (9.7-11.5)
[2023-02-16] MEDS ORDERED: METF500 PO (23:19)
[2023-02-16] MEDS ORDERED: ASPI81CH PO (23:20)
[2023-02-17 01:54] VITALS: BP 174/97
--- NOTE | 2023-02-17 04:26 | NUR ---
LATE ENTRY PT ADMIT FROM ER. ALERT AND ORIENTED X4 SOME DIFFICULTY WITH COORDINATION OF FINE MOTOR SKILLS NOTED AND SPEECH INTERMITTENLY PRESSURED WITH QUESTIONS. CALM AND COOPERATIVE. PER DR. CACERES OK TO EAT SOMETHING IF BEING WATCHED. NO CONCERNS WITH SWALLOWING AT THIS TIME. SBA TO BATHROOM. BED ALARM IS ON WITH CALL LIGHT IN REACH.
--- NOTE | 2023-02-17 04:28 | NUR ---
PT DENIES HAVING ANY IGNITION SOURCES ON HER. EDUCATION PROVIDED ON RISKS ASSOCIATED WITH HAVING IGNITION SOURCES CLOSE TO OXYGEN PT VERBALIZES UNDERSTANDING
--- NOTE | 2023-02-17 04:30 | NUR ---
CHRISTOPHER PEREZ IN MED DRAWER
[2023-02-17 04:36] LABS: CHOL/HDL RATIO 2.4; Cholesterol 168 mg/dL (50-200); HDL Cholesterol 70 mg/dL (>39); LDL/HDL RATIO 1.3; Low Density Lipoprotein Chol 88 mg/dL (0-110); Triglycerides 50 mg/dL (30-160); Very Low Density Lipoprot Chol 10 mg/dL (6-32)
[2023-02-17 07:40] LABS: Bun/Creatinine Ratio 21.4 (12.0-20.0); Calcium, Blood 8.9 mg/dL (8.5-10.1); Creatinine, Blood 1.03 mg/dL (0.40-1.00); Potassium, Blood 4.1 mmol/L (3.5-5.5)
[2023-02-17 08:16] VITALS: BP 157/93
[2023-02-17 15:38] VITALS: BP 136/85
--- NOTE | 2023-02-17 16:21 | NUR ---
SHIFT SUMMARY PT AOX4, SBA WITH THE FWW TO THE BATHROOM. PT DOES HAVE ASPIRATION PRECAUTIONS PER SPEECH THERAPY THIS SHIFT. PT HAS HAD NO COMPLAINTS. SHE COMPLETED AN MRI TODAY ALONG WITH AN ECHO. PT CALLS WELL AND MAKES HER NEEDS KNOWN. SHE HAS NO DISPLAYED S/S OF A CVA THIS SHIFT AND HER SPEECH IS CLEAR. PT WAS EDUCATED ON THE FIRE PROCEDURES AND PROTOCOLS. PT VERBALIZED UNDERSTANDING AND NO IGNITION SOURCES WERE NOTED. CALL LIGHT WITHIN REACH, BED IN THE LOWEST POSITION. WILL REPORT TO ONCOMING NURSE.
[2023-02-17 19:42] VITALS: BP 159/88
[2023-02-18] VITALS (12 sets, daily range): BP systolic 102–199; BP diastolic 64–105
--- NOTE | 2023-02-18 03:40 | NUR ---
PRODUCT SALES REPRESENTATIVE NOTIFIED ME OF HIGH BLOOD PRESSURE SBP >190. NOTIFIED ONE TIME HYDRALAZINE ORDER. WHILE PUTTING IN ORDER FOR MEDICAITON. PT ALERTED ME TO BEDSIDE WHEN SHE BEGAN TO EXPERIENCE LEFT SIDE FACE DROOP WITH PAIN IN THE JAW AND DYSPHASIA. PT DENIED CHEST PAIN AT THIS TIME. MD NOTIFIED OF SYMPTOMS. OK TO GIVE MEDICAITON AND CONTINUE TO ASSESS. HYDRALAZINE ADMINISTERED. CHARGE NURSE AT BEDSIDE. PT BEGAN TO C/O CHEST PAIN. NOTIFIED. OK TO ORDER NITRO AND EKG. PT REPORTS PAIN HAS SUBSIDED WITH ONE DOSE OF NITRO SOME CHEST PRESSURE REMAINS. AT BEDSIDE WITH PT NOW. BP 109/67
--- NOTE | 2023-02-18 05:04 | NUR ---
SHIFT SUMMARY PT IS ALERT AND ORIENTED X4. SBA WITH FWW TO BATHROOM. PT REPORTS LEFT SIDE WEAKNESS DENIES TINGLING. SOME INTERMITTENT STUDDERING NOTED AT BEGINNING OF SHIFT. AROUND 0230 PT EXPERIENCED HTN, LEFT SIDE FACE DROOP AND CHEST PAIN. PLS SEE PREVIOUS NURSE NOTE FOR DETAILS. DR. CACEERS CAME TO SEE PT. REQUEST GI COCKTAIL ORDER. PT EDUCATED ON RISK OF HAVING IGNITION SOURCES AROUNG OXYGEN. PT DENY HAVING IGNITION SOURCE.
[2023-02-18 06:28] LABS: BASOPHILS ABSOLUTE AUTO 0.02 K/mm3 (0.00-0.23); BASOPHILS PERCENT AUTO 0 % (0-2); EOSINOPHILS ABSOLUTE AUTO 0.03 K/mm3 (0.00-0.68); EOSINOPHILS PERCENT AUTO 0 % (0-6); Hematocrit 39.7 % (33.0-51.0); IMMATURE GRAN ABSOLUTE AUTO 0.02 K/mm3 (0.00-0.10); IMMATURE GRAN PERCENT AUTO 0 % (0-1); LYMPHOCYTES PERCENT AUTO 25 % (21-46); MONOCYTES ABSOLUTE AUTO 0.53 K/mm3 (0.16-1.47); MONOCYTES PERCENT AUTO 6 % (4-13); Mean Corpuscular HGB 27.1 pg (26.0-34.0); Mean Corpuscular HGB Conc 32.7 g/dL (31.5-36.5); Mean Corpuscular Volume 83 fL (80-100); Mean Platelet Volume 9.9 fL (9.1-12.4); NEUTROPHILS ABSOLUTE AUTO 6.28 K/mm3 (1.96-9.15); NEUTROPHILS PERCENT AUTO 68 % (41-73); Platelet Count 252 K/mm3 (150-400); RDW Coefficient Variation 15.9 % (11.7-14.2); RDW Standard Deviation 47.8 fL (35.1-46.3); Red Blood Cell Count 4.79 M/mm3 (3.80-5.20); White Blood Cell Count 9.18 K/mm3 (4.00-11.30)
[2023-02-18 06:44] LABS: Calcium, Blood 9.1 mg/dL (8.5-10.1); Creatinine, Blood 1.19 mg/dL (0.40-1.00); Potassium, Blood 4.1 mmol/L (3.5-5.5)
--- NOTE | 2023-02-18 17:25 | NUR ---
SHIFT SUMMARY PT AOX4, SBA C FWW TO THE BATHROOM. PT IS PLEASANT AND COOPERATIVE, MAKES HER NEEDS KNOWN. SHE HAD ELEVATED BP AT THE START OF THE SHIFT BUT THE NIGHT NURSE ADMINISTERED MEDICATIONS PER THE EMAR. SHE WAS STARTED ON A NEW MEDICATOIN PER THE EMAR AND SHE IS TOLERATING IT WELL. PT HAD A FRIEND VISIT TODAY. PT HAS HAD NO OTHER COMPLAINTS. PT EDUCATED ON FIRE PROCEDURES AND PROTOCOLS, PT VERBALIZED UNDERSTANDING. PT IS ON RA. CALL LIGHT WITHIN REACH, BED IN THE LOWEST POSITION. WILL REPORT TO ONCOMING NURSE.
[2023-02-19 04:50] VITALS: BP 139/70
[2023-02-19 05:48] LABS: BASOPHILS ABSOLUTE AUTO 0.03 K/mm3 (0.00-0.23); BASOPHILS PERCENT AUTO 1 % (0-2); EOSINOPHILS ABSOLUTE AUTO 0.09 K/mm3 (0.00-0.68); EOSINOPHILS PERCENT AUTO 2 % (0-6); Hematocrit 37.1 % (33.0-51.0); Hemoglobin 11.9 g/dL (11.5-16.0); IMMATURE GRAN ABSOLUTE AUTO 0.02 K/mm3 (0.00-0.10); IMMATURE GRAN PERCENT AUTO 0 % (0-1); LYMPHOCYTES ABSOLUTE AUTO 2.24 K/mm3 (0.84-5.20); LYMPHOCYTES PERCENT AUTO 38 % (21-46); MONOCYTES ABSOLUTE AUTO 0.44 K/mm3 (0.16-1.47); MONOCYTES PERCENT AUTO 8 % (4-13); Mean Corpuscular HGB 26.7 pg (26.0-34.0); Mean Corpuscular HGB Conc 32.1 g/dL (31.5-36.5); Mean Corpuscular Volume 83 fL (80-100); Mean Platelet Volume 10.2 fL (9.1-12.4); NEUTROPHILS ABSOLUTE AUTO 3.01 K/mm3 (1.96-9.15); NEUTROPHILS PERCENT AUTO 52 % (41-73); Platelet Count 237 K/mm3 (150-400); RDW Coefficient Variation 16.2 % (11.7-14.2); RDW Standard Deviation 48.9 fL (35.1-46.3); Red Blood Cell Count 4.45 M/mm3 (3.80-5.20); White Blood Cell Count 5.83 K/mm3 (4.00-11.30)
--- NOTE | 2023-02-19 06:00 | NUR ---
SHIFT SUMMARY; NO ACUTE CHANGES OVERNIGHT. PT IS AXO X4 AND STANDBY ASSIST TO THE BATHROOM. THE PT SLEPT IN BED FOR THE ENTIRETY OF THE NIGHT. THE PT DENIES ANY SOB, PAIN, CHEST PAIN/PRESSURE OR N/V THIS SHIFT. CURRENTLY THE PT IS SLEEPING IN BED WITH THE BED IN THE LOWEST POSITION AND THE CALL LIGHT AT BEDSIDE. FIRE SAFETY MAINTAINED T/O THE NIGHT.
[2023-02-19 06:22] LABS: Bun/Creatinine Ratio 26.5 (12.0-20.0); Calcium, Blood 8.9 mg/dL (8.5-10.1); Creatinine, Blood 1.36 mg/dL (0.40-1.00); Potassium, Blood 4.7 mmol/L (3.5-5.5)
[2023-02-19 07:48] VITALS: BP 136/84
[2023-02-19] MEDS ORDERED: CLOP75 PO (10:47)
--- NOTE | 2023-02-19 11:23 | NUR ---
DISCHARGE PT LEFT VIA WHEELCHAIR WITH DAUGHTER. PT HAS NOT HAD ANY S/S OF CVA OR TIA WHILE THIS RN HAS BEEN CARING FOR HER. SHE AMBULATES WELL NO WEAKNESS OR DEFECITS NOTED. PRESCRIPTION SENT TO [facility] PER PT REQUEST. INSTRUCTIONS GONE OVER AT LENGTH WITH PATIENT. IVS REMOVED WNL. IGNITION RISK SCREEN FOR NO SOURCES FOUND.
== END 2023-02-19 11:20 | disposition home health service (06) | DRG 69 ==
LOC: ER 19:00 → MEDS 19:01 → ER 02-17 01:14 → MEDS 02-17 01:14 → ENPENDDIS 02-19 11:16 → MEDS 02-19 11:20
PROVIDERS: Emergency Medicine; Family Medicine; Internal Medicine; ADMIT Internal Medicine
DX: G45.9 Transient cerebral ischemic attack, unspecified (principal); I16.1 Hypertensive emergency; R47.01 Aphasia; E78.5 Hyperlipidemia, unspecified; E11.22 Type 2 diabetes mellitus with diabetic chronic kidney disease; I12.9 Hypertensive chronic kidney disease with stage 1 through stage 4 chronic kidney disease, or unspecified chronic kidney disease; R47.1 Dysarthria and anarthria; M41.9 Scoliosis, unspecified; K21.9 Gastro-esophageal reflux disease without esophagitis; I25.10 Atherosclerotic heart disease of native coronary artery without angina pectoris; N18.30 Chronic kidney disease, stage 3 unspecified; J44.9 Chronic obstructive pulmonary disease, unspecified; F32.A Depression, unspecified; Z96.652 Presence of left artificial knee joint; Z88.2 Allergy status to sulfonamides; Z88.8 Allergy status to other drugs, medicaments and biological substances; Z85.3 Personal history of malignant neoplasm of breast; Z88.5 Allergy status to narcotic agent; Z86.73 Personal history of transient ischemic attack (TIA), and cerebral infarction without residual deficits; Z79.899 Other long term (current) drug therapy; Z79.84 Long term (current) use of oral hypoglycemic drugs; Z79.82 Long term (current) use of aspirin; Z86.711 Personal history of pulmonary embolism; Z98.890 Other specified postprocedural states; Z90.49 Acquired absence of other specified parts of digestive tract; Z90.13 Acquired absence of bilateral breasts and nipples; Z90.710 Acquired absence of both cervix and uterus; Z91.041 Radiographic dye allergy status; Z90.722 Acquired absence of ovaries, bilateral; Z90.89 Acquired absence of other organs
CPT/HCPCS: 36415; 70450; 70496; 70498; 70551; 71045; 80048; 80053; 80061; 82947; 83036; 85025; 85610; 85730; 92526; 92610; 93005; 93010; 93308; 96372; 96374-59; 96375-59; 96376; 97110-CQ; 97112; 97116; 97116-CQ; 97162; 99285-25; A9270; G0378; J0360; J1200; J1644; J1815; J2930; Q9967

== ENCOUNTER 2023-03-23 14:56 | Observation (INO) | payer MEDICARE, OTHER ==
[~2023-03-23] VITALS: Ht 170.2 cm; Wt 72.6 kg
[~2023-03-23 14:56] MED LIST changes: +CLOP75 PO
[2023-03-23] MEDS ORDERED: Ventolin/Prove6.7 GM INH (15:13)
[2023-03-23 22:09] LABS: International Normalized Ratio 0.99; Prothrombin Time Results 10.4 Sec (9.7-11.5)
[2023-03-23 22:12] LABS: BASOPHILS ABSOLUTE AUTO 0.02 K/mm3 (0.00-0.23); BASOPHILS PERCENT AUTO 0 % (0-2); EOSINOPHILS ABSOLUTE AUTO 0.11 K/mm3 (0.00-0.68); EOSINOPHILS PERCENT AUTO 1 % (0-6); Hematocrit 38.2 % (33.0-51.0); Hemoglobin 12.5 g/dL (11.5-16.0); IMMATURE GRAN ABSOLUTE AUTO 0.02 K/mm3 (0.00-0.10); IMMATURE GRAN PERCENT AUTO 0 % (0-1); LYMPHOCYTES ABSOLUTE AUTO 1.69 K/mm3 (0.84-5.20); LYMPHOCYTES PERCENT AUTO 21 % (21-46); MONOCYTES ABSOLUTE AUTO 0.55 K/mm3 (0.16-1.47); MONOCYTES PERCENT AUTO 7 % (4-13); Mean Corpuscular HGB 27.5 pg (26.0-34.0); Mean Corpuscular HGB Conc 32.7 g/dL (31.5-36.5); Mean Corpuscular Volume 84 fL (80-100); Mean Platelet Volume 9.7 fL (9.1-12.4); NEUTROPHILS PERCENT AUTO 70 % (41-73); Platelet Count 217 K/mm3 (150-400); RDW Coefficient Variation 15.4 % (11.7-14.2); RDW Standard Deviation 47.6 fL (35.1-46.3); Red Blood Cell Count 4.54 M/mm3 (3.80-5.20); White Blood Cell Count 7.99 K/mm3 (4.00-11.30)
[2023-03-23 22:34] LABS: Albumin, Blood 3.9 g/dL (3.4-5.0); Albumin/Globulin Ratio 1.2 (0.8-1.8); Bilirubin, Total 0.3 mg/dL (0.1-1.0); Bun/Creatinine Ratio 19.4 (12.0-20.0); Calcium, Blood 9.3 mg/dL (8.5-10.1); Creatinine, Blood 1.08 mg/dL (0.40-1.00); Globulin, Blood 3.3 g/dL (2.2-4.0); Total Protein, Blood 7.2 g/dL (6.4-8.2)
[2023-03-23 22:45] VITALS: BP 141/76
== END 2023-03-23 22:40 | disposition short-term general hospital (02) ==
LOC: ER 14:56 → ICUE 14:57
PROVIDERS: Student in an Organized Health Care Education/Training Program; ADMIT Internal Medicine
DX: S06.5XAA Traumatic subdural hemorrhage with loss of consciousness status unknown, initial encounter (principal); W18.30XA Fall on same level, unspecified, initial encounter; Z86.73 Personal history of transient ischemic attack (TIA), and cerebral infarction without residual deficits; E78.5 Hyperlipidemia, unspecified; K21.9 Gastro-esophageal reflux disease without esophagitis; N18.30 Chronic kidney disease, stage 3 unspecified; I25.10 Atherosclerotic heart disease of native coronary artery without angina pectoris; J44.9 Chronic obstructive pulmonary disease, unspecified; I12.9 Hypertensive chronic kidney disease with stage 1 through stage 4 chronic kidney disease, or unspecified chronic kidney disease; E11.22 Type 2 diabetes mellitus with diabetic chronic kidney disease; Z88.5 Allergy status to narcotic agent; Z88.2 Allergy status to sulfonamides; Z91.041 Radiographic dye allergy status
CPT/HCPCS: 70450; 72125; 73060; 73562-LT; 80053; 85025; 85610; 85730; 86900; 86901; 96365; 96366; 96375; 99291-25; A9270; G0378; J7050

== ENCOUNTER 2023-04-05 15:20 | Emergency (ER) | payer MEDICARE, OTHER ==
[~2023-04-05] VITALS: Ht 170.2 cm; Wt 72.6 kg
[2023-04-05 15:36] LABS: BASOPHILS ABSOLUTE AUTO 0.02 K/mm3 (0.00-0.23); BASOPHILS PERCENT AUTO 0 % (0-2); EOSINOPHILS ABSOLUTE AUTO 0.11 K/mm3 (0.00-0.68); EOSINOPHILS PERCENT AUTO 2 % (0-6); Hematocrit 34.5 % (33.0-51.0); IMMATURE GRAN PERCENT AUTO 0 % (0-1); LYMPHOCYTES ABSOLUTE AUTO 1.65 K/mm3 (0.84-5.20); LYMPHOCYTES PERCENT AUTO 28 % (21-46); MONOCYTES ABSOLUTE AUTO 0.37 K/mm3 (0.16-1.47); MONOCYTES PERCENT AUTO 6 % (4-13); Mean Corpuscular HGB 27.7 pg (26.0-34.0); Mean Corpuscular HGB Conc 31.9 g/dL (31.5-36.5); Mean Corpuscular Volume 87 fL (80-100); Mean Platelet Volume 9.6 fL (9.1-12.4); NEUTROPHILS ABSOLUTE AUTO 3.86 K/mm3 (1.96-9.15); NEUTROPHILS PERCENT AUTO 64 % (41-73); Platelet Count 242 K/mm3 (150-400); RDW Coefficient Variation 15.1 % (11.7-14.2); RDW Standard Deviation 48.5 fL (35.1-46.3); Red Blood Cell Count 3.97 M/mm3 (3.80-5.20); White Blood Cell Count 6.01 K/mm3 (4.00-11.30)
[2023-04-05 15:54] LABS: Albumin, Blood 3.4 g/dL (3.4-5.0); Albumin/Globulin Ratio 1.1 (0.8-1.8); Bilirubin, Total 0.2 mg/dL (0.1-1.0); Bun/Creatinine Ratio 23.5 (12.0-20.0); Calcium, Blood 8.1 mg/dL (8.5-10.1); Creatinine, Blood 1.02 mg/dL (0.40-1.00); Globulin, Blood 3.1 g/dL (2.2-4.0); Potassium, Blood 3.9 mmol/L (3.5-5.5); Total Protein, Blood 6.5 g/dL (6.4-8.2)
[2023-04-05 17:29] VITALS: BP 151/74
== END 2023-04-05 19:34 | disposition home or self-care (01) ==
LOC: ER 15:20
PROVIDERS: Emergency Medicine
DX: R51.9 Headache, unspecified (principal); R07.9 Chest pain, unspecified; Z88.2 Allergy status to sulfonamides; Z88.5 Allergy status to narcotic agent; Z88.8 Allergy status to other drugs, medicaments and biological substances; Z79.51 Long term (current) use of inhaled steroids; Z79.899 Other long term (current) drug therapy; Z79.84 Long term (current) use of oral hypoglycemic drugs; Z79.82 Long term (current) use of aspirin; J44.9 Chronic obstructive pulmonary disease, unspecified; E11.9 Type 2 diabetes mellitus without complications; K21.9 Gastro-esophageal reflux disease without esophagitis; E78.5 Hyperlipidemia, unspecified; Z86.73 Personal history of transient ischemic attack (TIA), and cerebral infarction without residual deficits
CPT/HCPCS: 70450; 71045; 80053; 84484; 85025; 93005; 93010; 99285-25; A9270

== ENCOUNTER 2023-05-02 13:15 | Emergency (ER) | payer MEDICARE, OTHER ==
[~2023-05-02] VITALS: Ht 170.2 cm; Wt 72.6 kg
[2023-05-02 13:35] LABS: BASOPHILS ABSOLUTE AUTO 0.03 K/mm3 (0.00-0.23); BASOPHILS PERCENT AUTO 1 % (0-2); EOSINOPHILS ABSOLUTE AUTO 0.06 K/mm3 (0.00-0.68); EOSINOPHILS PERCENT AUTO 1 % (0-6); Hematocrit 38.3 % (33.0-51.0); Hemoglobin 12.3 g/dL (11.5-16.0); IMMATURE GRAN ABSOLUTE AUTO 0.01 K/mm3 (0.00-0.10); IMMATURE GRAN PERCENT AUTO 0 % (0-1); LYMPHOCYTES ABSOLUTE AUTO 1.84 K/mm3 (0.84-5.20); LYMPHOCYTES PERCENT AUTO 29 % (21-46); MONOCYTES ABSOLUTE AUTO 0.37 K/mm3 (0.16-1.47); MONOCYTES PERCENT AUTO 6 % (4-13); Mean Corpuscular HGB 27.8 pg (26.0-34.0); Mean Corpuscular HGB Conc 32.1 g/dL (31.5-36.5); Mean Corpuscular Volume 87 fL (80-100); Mean Platelet Volume 9.5 fL (9.1-12.4); NEUTROPHILS ABSOLUTE AUTO 4.03 K/mm3 (1.96-9.15); NEUTROPHILS PERCENT AUTO 64 % (41-73); Platelet Count 235 K/mm3 (150-400); RDW Coefficient Variation 14.6 % (11.7-14.2); RDW Standard Deviation 47.2 fL (35.1-46.3); Red Blood Cell Count 4.42 M/mm3 (3.80-5.20); White Blood Cell Count 6.34 K/mm3 (4.00-11.30)
[2023-05-02 13:56] LABS: Albumin/Globulin Ratio 1.1 (0.8-1.8); Bilirubin, Total 0.2 mg/dL (0.1-1.0); Bun/Creatinine Ratio 27.5 (12.0-20.0); Calcium, Blood 8.8 mg/dL (8.5-10.1); Creatinine, Blood 1.09 mg/dL (0.40-1.00); Globulin, Blood 3.5 g/dL (2.2-4.0); Potassium, Blood 4.3 mmol/L (3.5-5.5); Total Protein, Blood 7.5 g/dL (6.4-8.2)
[2023-05-02 14:15] LABS: Source, Urine Clean Catch
[2023-05-02 15:13] LABS: Bilirubin, Urine Neg (Neg); Blood, Urine Neg (Neg); Glucose Qualitative, Urine Neg (Neg); Ketones, Urine Neg (Neg); Leukocyte Esterase, Urine Neg (Neg); Nitrite, Urine Neg (Neg); Protein, Urine Neg (Neg); Specific Gravity, Urine 1.015 (1.003-1.022); Urobilinogen, Urine NORM (Normal); pH, Urine 6.5 (5.0-8.0)
[2023-05-02 15:30] VITALS: BP 177/91
[2023-05-02 15:44] LABS: Appearance, Urine Clear (Clear); Color, Urine Pale Yellow (P-Yellow)
== END 2023-05-02 16:14 | disposition home or self-care (01) ==
LOC: ER 13:15
PROVIDERS: Physician Assistant
DX: R40.4 Transient alteration of awareness (principal); E78.5 Hyperlipidemia, unspecified; J44.9 Chronic obstructive pulmonary disease, unspecified; Z86.73 Personal history of transient ischemic attack (TIA), and cerebral infarction without residual deficits; Z85.3 Personal history of malignant neoplasm of breast; Z86.711 Personal history of pulmonary embolism; Z88.2 Allergy status to sulfonamides; Z88.8 Allergy status to other drugs, medicaments and biological substances; Z91.041 Radiographic dye allergy status; Z88.5 Allergy status to narcotic agent; Z79.82 Long term (current) use of aspirin; Z79.84 Long term (current) use of oral hypoglycemic drugs; Z79.899 Other long term (current) drug therapy
CPT/HCPCS: 70450; 80053; 81003; 83690; 84484; 85025; 93005; 93010; 99285-25

== ENCOUNTER 2023-05-15 14:12 | Inpatient (IN) | payer MEDICARE, OTHER ==
[~2023-05-15] VITALS: Ht 167.6 cm; Wt 73.4 kg
[2023-05-15 14:43] LABS: BASOPHILS ABSOLUTE AUTO 0.01 K/mm3 (0.00-0.23); BASOPHILS PERCENT AUTO 0 % (0-2); EOSINOPHILS ABSOLUTE AUTO 0.07 K/mm3 (0.00-0.68); EOSINOPHILS PERCENT AUTO 1 % (0-6); Hematocrit 36.3 % (33.0-51.0); Hemoglobin 11.7 g/dL (11.5-16.0); IMMATURE GRAN ABSOLUTE AUTO 0.01 K/mm3 (0.00-0.10); IMMATURE GRAN PERCENT AUTO 0 % (0-1); LYMPHOCYTES ABSOLUTE AUTO 1.66 K/mm3 (0.84-5.20); LYMPHOCYTES PERCENT AUTO 27 % (21-46); MONOCYTES ABSOLUTE AUTO 0.34 K/mm3 (0.16-1.47); MONOCYTES PERCENT AUTO 5 % (4-13); Mean Corpuscular HGB 27.7 pg (26.0-34.0); Mean Corpuscular HGB Conc 32.2 g/dL (31.5-36.5); Mean Corpuscular Volume 86 fL (80-100); Mean Platelet Volume 9.8 fL (9.1-12.4); NEUTROPHILS ABSOLUTE AUTO 4.15 K/mm3 (1.96-9.15); NEUTROPHILS PERCENT AUTO 67 % (41-73); Platelet Count 184 K/mm3 (150-400); RDW Coefficient Variation 14.2 % (11.7-14.2); RDW Standard Deviation 44.6 fL (35.1-46.3); Red Blood Cell Count 4.23 M/mm3 (3.80-5.20); White Blood Cell Count 6.24 K/mm3 (4.00-11.30)
[2023-05-15 15:25] LABS: Albumin, Blood 3.6 g/dL (3.4-5.0); Albumin/Globulin Ratio 1.1 (0.8-1.8); Bilirubin, Total 0.3 mg/dL (0.1-1.0); Bun/Creatinine Ratio 21.8 (12.0-20.0); Calcium, Blood 8.3 mg/dL (8.5-10.1); Creatinine, Blood 1.19 mg/dL (0.40-1.00); Globulin, Blood 3.3 g/dL (2.2-4.0); Thyroid Stimulating Hormone 0.988 uIU/mL (0.360-4.800); Total Protein, Blood 6.9 g/dL (6.4-8.2)
[2023-05-15] MEDS ORDERED: AMLO5 PO (19:22)
[2023-05-15] MEDS ORDERED: PRAM.5 PO (19:30)
[2023-05-15 19:41] VITALS: BP 205/104
[2023-05-15 22:25] VITALS: BP 121/60
[2023-05-15 22:27] VITALS: BP 126/62
[2023-05-16] VITALS (7 sets, daily range): BP systolic 98–179; BP diastolic 70–99
--- NOTE | 2023-05-16 05:08 | NUR ---
SHIFT SUMMARY PT BP HIGH ON ARRIVAL. SCHEDULED [place] GIVEN WITH POSITIVE EFFECT. SBP UNDER 180 FOR THE REMAINDER OF THE NIGHT, NO PRNS REQUIRED. PT TAKES MIRAPEX .75MG TID, NOTIFED OSCAR CALI TO ORDER HOME DOSING. NO C/O DIZZINESS OR LIGHTHEADEDNESS, HOWEVER PT IS NOT AMBULATING MORE THAN TO THE BEDSIDE COMMODE OVERNIGHT.
[2023-05-16 06:38] LABS: Albumin, Blood 3.6 g/dL (3.4-5.0); Albumin/Globulin Ratio 1.1 (0.8-1.8); Bilirubin, Total 0.3 mg/dL (0.1-1.0); Calcium, Blood 9.1 mg/dL (8.5-10.1); Creatinine, Blood 1.21 mg/dL (0.40-1.00); Globulin, Blood 3.4 g/dL (2.2-4.0); Potassium, Blood 4.3 mmol/L (3.5-5.5)
--- NOTE | 2023-05-16 15:46 | NUR ---
Pt. is awake in bed and welcomes my visit. Pt. is pleasant. Through facilitating a life review it became apparent that the Pt. and this physical medicine physician had become acquainted in the past through a local anabaptist in the community, as well as a recent admission to the ED before she was lifeflighted to [place]. Listened to the Pt. with interest, empathy and a calming presence. Pt. displayed a lighted mood and smiled alot during our visit. Prayed with Pt. Pt. verbalized gratitude for the spiritual care visit and welcomed this physical medicine physician to return.
--- NOTE | 2023-05-16 16:31 | NUR ---
PT CALLED RN TO ROOM STATIMG HER BG WAS FEELING LOW. TESTED FOR A RESULT OF 32, GAVE PT 2 APPLE JUICES AND 2 PUDDINGS. RETESTED 10 MINS AFTER EATING PUDDING & DRINKING JUICES BG IS 35. WILL RETEST IN 15 MINS.
--- NOTE | 2023-05-16 19:17 | NUR ---
SHIFT SUMMARY A&O X 4, PLEASANT & COOPERATIVE WITH ALL CARE. ORTHOSTATIC BP'S DONE X 2 TODAY SHOW A DROP IN BP WITH STANDING (SEE VS). IS 1 ASSIST TO BSC. APPETITE IS GOOD. DENIES PAIN, SOB. PT HAS THIGH HIGH COMPRESSION SOCKS & ABD BINDER ON PER MD ORDER. PER MD FLUIDS PUSHED AND SALTY SNACKS PROVIDED TO PT. BED IN LOW POSITION & CALL LIGHT WITHIN REACH.
[2023-05-17] VITALS (45 sets, daily range): BP systolic 76–218; BP diastolic 60–188
--- NOTE | 2023-05-17 06:49 | NUR ---
SHIFT SUMMARY PT CRYING AND ANXIOUS MOST OF NIGHT. PERCOCET AND IMITREX GIVEN FOR PAIN AND HEADACHE, WITH SOME RELIEF. PT SLEPT MORE TONIGHT THAN PREVIOUS NIGHT. 1:1 SITTER. NO BMS TO BE ABLE TO COLLECT STOOL SAMPLE. 24HR URINE COLLECTION IN PROCESS, ENDS AT 1615 TODAY.
[2023-05-17 06:51] LABS: Bun/Creatinine Ratio 20.8 (12.0-20.0); Calcium, Blood 9.5 mg/dL (8.5-10.1); Creatinine, Blood 1.44 mg/dL (0.40-1.00); Potassium, Blood 4.6 mmol/L (3.5-5.5)
--- NOTE | 2023-05-17 08:07 | NUR ---
pt laying in bed awake, a/ox4, pleasant and coopertive with care, follows commands well, denies pain at this time, lungs are clear t/o, resp even and unlabored, no cough noted, hrr, tele in place running sr with first degree block, no edema noted, pt has teds in place, ppp +1, cap refill <3sec, vs stable, afebrile, piv is clear and patent, btx4, abd flat soft nontender, reports a bit of constipation, voids without diff, skin c/w/d, abelardo westbrook, call light in reach, she knows to call for assist to br, but has been usinig bsc at this time. call light in reach.
--- NOTE | 2023-05-17 14:58 | NUR ---
pt found unable to speak clearly, in distress, states her head hurts, b/p is high, but unable to sit up for orthostatic b/p's, called Dr. Sahni to come to the room, he came in, ordered labatolol, 5mg was given with no change in b/p, rapid was called, pt will be going to ct then to icu. left via bed with icu discharge planner.
[2023-05-17 15:04] LABS: BASOPHILS ABSOLUTE AUTO 0.02 K/mm3 (0.00-0.23); BASOPHILS PERCENT AUTO 0 % (0-2); EOSINOPHILS ABSOLUTE AUTO 0.12 K/mm3 (0.00-0.68); EOSINOPHILS PERCENT AUTO 2 % (0-6); Hematocrit 42.8 % (33.0-51.0); IMMATURE GRAN ABSOLUTE AUTO 0.01 K/mm3 (0.00-0.10); IMMATURE GRAN PERCENT AUTO 0 % (0-1); LYMPHOCYTES ABSOLUTE AUTO 2.07 K/mm3 (0.84-5.20); LYMPHOCYTES PERCENT AUTO 35 % (21-46); MONOCYTES PERCENT AUTO 7 % (4-13); Mean Corpuscular HGB 27.8 pg (26.0-34.0); Mean Corpuscular HGB Conc 32.7 g/dL (31.5-36.5); Mean Corpuscular Volume 85 fL (80-100); NEUTROPHILS ABSOLUTE AUTO 3.36 K/mm3 (1.96-9.15); NEUTROPHILS PERCENT AUTO 56 % (41-73); Platelet Count 220 K/mm3 (150-400); RDW Coefficient Variation 13.9 % (11.7-14.2); RDW Standard Deviation 43.1 fL (35.1-46.3); Red Blood Cell Count 5.03 M/mm3 (3.80-5.20); White Blood Cell Count 5.98 K/mm3 (4.00-11.30)
[2023-05-17 15:20] LABS: Albumin, Blood 4.1 g/dL (3.4-5.0); Anion Gap 5 mmol/L (6-16); Blood Urea Nitrogen 27 mg/dL (8-24); Bun/Creatinine Ratio 21.8 (12.0-20.0); CO2, Blood 27 mmol/L (21-32); Calcium, Blood 9.7 mg/dL (8.5-10.1); Chloride, Blood 105 mmol/L (98-108); Creatinine, Blood 1.24 mg/dL (0.40-1.00); Glomerular Filtration Rate 44 (60-); Glucose, Blood 124 mg/dL (70-99); Phosphorus, Blood 3.5 mg/dL (2.5-4.9); Potassium, Blood 4.3 mmol/L (3.5-5.5); Sodium, Blood 137 mmol/L (136-145)
--- NOTE | 2023-05-17 15:31 | NUR ---
ASSUMPTION OF CARE/ ARRIVAL FROM MED FLOOR PATIENT ARRIVED FROM MEDICAL FLOOR AND HEAD CT AT 1510. PATIENT CALM, COOPERATIVE AND PLEASANT. PATIENT JOKING AROUND WITH STAFF. PATIENT ALERT AND ORIENTED X 4, AFEBRILE. PATIENT HAS SOME DIFFICULTY WITH SPEECH BUT STATES THIS IS HER BASELINE SINCE HER CVA YEARS AGO. PATIENT STATES SHE ALSO HAS SOME PROBLEMS WITH HER MEMORY. PATIENT STATES SHE LIVES AT "[facility]" IN [place]. PATIENT STATES THAT SHE HAS SOME L SIDE DEFICIT SINCE HER CVA. PATIENT DENIES PAIN OR DISCOMFORT. PATIENT SATTING 90% AND GREATER ON RA. LUNG CLEAR THROUGHOUT. PATIENT DENIES COUGH. BP LABILE. SBP IN THE 170S. SBP IN THE 200S WHEN BROUGHT DOWN TO UNIT. PATIENT ON ESMOLOL DRIP AT 50 MCG/ KG/ MINUTE. REPORTS OF PATIENT HAVING SIGNIFICANT ORTHOSTATIC HYPOTENSION. GI WNL. WNL. PATIENT ORIENTED TO UNIT, ROOM AND CALL SYSTEM. BED LOW, CALL LIGHT IN REACH. PATIENT CALLED DAUGHTER AND LET HER KNOW OF HER ROOM CHANGE. DR. ROSSI TO ROOM TO SEE PATIENT. CARE CONTINUES.
--- NOTE | 2023-05-17 18:51 | NUR ---
SHIFT SUMMARY PATIENT REMAINED ALERT AND ORIENTED X 4, AFEBRILE. PATIENT HAD NO COMPLAINTS OF PAIN OR DISCOMFORT THROUGHOUT SHIFT. PATIENT REMAINED CALM, COOPERATIVE, PLEASANT. PATIENT REMAINED WITH DIFFICULTY FINDING WORDS AT TIMES BUT WAS ABLE TO COMMUNICATE WELL. PATIENT REMAINED SATTING 90% AND GREATER ON RA. PATIENT HR 60S TO 80S. SBP 120S TO LOW 200S. ESMOLOL ON SB AT THIS TIME. ESMOLOL AT MAX OF 50 MCG/ KG/ MINUTE THIS SHIFT. NO BM THIS SHIFT. PATIENT ATE DINNER WELL. 450 MLS OF URINE OUT THIS SHIFT. 24 HOUR URINE COLLECTION IN PROGRESS. BED LOW, CALL LIGHT IN REACH. REPORT TO BLENDER/BRAZE APPLICATOR NURSE SHORTLY.
--- NOTE | 2023-05-17 19:59 | NUR ---
ASSUMED CARE OF PT AT 1915 BEDSIDE REPORT RECEIVED FROM BRITTANY HAQUE. PT IS A/O W/OCCASIONAL FORGETFULNESS (CONSISTENT WITH BASELINE). HAS BEEN APPROPRIATE AND USING CALL LIGHT TO MAKE NEEDS KNOWN AND REQUEST ASSISTANCE. SR, BP WNL (GOAL SBP < 160) WITH ESMOLOL DRIP CONCHA ON STANDBY. ON ROOM AIR, SPO2 100%. DENIES NAUSEA, EATING ADA DIET WITH NO ISSUES. OOB TO TOILET TO VOID WITH STANDBY ASSISTANCE. CURRENTLY COLLECTING 24 HOUR URINE. SKIN INTACT. PIV X1 SL. NO FAMILY AT BEDSIDE. POC ONGOING.
[2023-05-18] VITALS (99 sets, daily range): BP systolic 90–191; BP diastolic 58–125
[2023-05-18 03:37] LABS: BASOPHILS ABSOLUTE AUTO 0.03 K/mm3 (0.00-0.23); BASOPHILS PERCENT AUTO 1 % (0-2); EOSINOPHILS ABSOLUTE AUTO 0.14 K/mm3 (0.00-0.68); EOSINOPHILS PERCENT AUTO 2 % (0-6); Hematocrit 38.3 % (33.0-51.0); Hemoglobin 12.5 g/dL (11.5-16.0); IMMATURE GRAN ABSOLUTE AUTO 0.02 K/mm3 (0.00-0.10); IMMATURE GRAN PERCENT AUTO 0 % (0-1); LYMPHOCYTES ABSOLUTE AUTO 1.72 K/mm3 (0.84-5.20); LYMPHOCYTES PERCENT AUTO 28 % (21-46); MONOCYTES ABSOLUTE AUTO 0.44 K/mm3 (0.16-1.47); MONOCYTES PERCENT AUTO 7 % (4-13); Mean Corpuscular HGB 28.1 pg (26.0-34.0); Mean Corpuscular HGB Conc 32.6 g/dL (31.5-36.5); Mean Corpuscular Volume 86 fL (80-100); Mean Platelet Volume 10.3 fL (9.1-12.4); NEUTROPHILS PERCENT AUTO 63 % (41-73); Platelet Count 192 K/mm3 (150-400); RDW Coefficient Variation 14.1 % (11.7-14.2); RDW Standard Deviation 43.8 fL (35.1-46.3); Red Blood Cell Count 4.45 M/mm3 (3.80-5.20); White Blood Cell Count 6.25 K/mm3 (4.00-11.30)
[2023-05-18 04:02] LABS: Albumin, Blood 3.6 g/dL (3.4-5.0); Bilirubin, Total 0.3 mg/dL (0.1-1.0); Bun/Creatinine Ratio 16.2 (12.0-20.0); Calcium, Blood 9.1 mg/dL (8.5-10.1); Creatinine, Blood 1.48 mg/dL (0.40-1.00); Globulin, Blood 3.6 g/dL (2.2-4.0); Magnesium, Blood 1.9 mg/dL (1.6-2.4); Potassium, Blood 4.6 mmol/L (3.5-5.5); Total Protein, Blood 7.2 g/dL (6.4-8.2)
--- NOTE | 2023-05-18 06:25 | NUR ---
SHIFT SUMMARY PT IS A/O, SLOW SPEECH, OCCASIONALLY HAS DIFFICULTY FINDING WORDS. SR WITH 1ST DEGREE AV BLOCK. BP CONTROLLED WITH LOBETALOL DRIP. TITRATED TO EFFECT. O2 SAT > 96% ON ROOM AIR. LUNGS CTA. DENIES NAUSEA, SWALLOWS WELL. VOIDS, 24 HOUR URINE IN PROGRESS. PT OVERFLOWING THE BEDPAN DURING VOIDING. UBALE TO GET OOB DUE TO SEVERELY HIGH BP. CONTACTED KARELY WARREN NP TO DISCUSS PLAN FOR 24 HOUR URINE COLLECTION WHEN PT HAVING SPILLOVER OF URINE. OK TO USE PUREWICK. PT STATES SHE IS FAMILIAR WITH THEM AND IS AGGREABLE TO USING THIS FOR UO. 1 ADDITOINAL EPISODE OF INCONTINENCE WHEN PUREWICK NOT POSITIONED CORRECTLY. 24 HOUR URINE MAY NEED TO BE RESTARTED. WILL DEFER DECISION TO PHYSICIAN TODAY. SKIN INTACT, UNCHANGED. PIV X1 TO RIGHT AC, FLUSHES AND WITHDRAWS BLOOD. NO FAMILY AT BEDSIDE. UPDATE PROVIDED TO DAUGHTER VIA PHONE. POC ONGOING.
--- NOTE | 2023-05-18 08:01 | NUR ---
INITIAL ASSESSMENT PATIENT RESTING IN BED QUIETLY UPON ENTERING ROOM. PATIENT ALERT AND ORIENTED X 4. PATIENT HAS DIFFICULTY WITH SPEECH AT TIMES AND SOME "MEMORY ISSUES" WHICH SHE STATES HAS BEEN HER BASELINE SINCE A PAST CVA. PATIENT 1 PERSON ASSIST OUT OF BED HAS HAD RECENT EPISODES OF FEELING DIZZY. PATIENT AFEBRILE. PATIENT HAS GOOD STRENGTH IN ALL EXTREMITIES. PATIENT DENIES PAIN OR DISCOMFORT. PATIENT SATTING 90% AND GREATER ON RA. LUNGS CLEAR THROUGHOUT. PATIENT IN SR WITH FIRST DEGREE BLOCK, HR IN THE 70S. SBP IN THE 130S. ESMOLOL DRIP AT 50 MCG/ KG/ MINUTE. BPS LABILE. SCDS IN PLACE. LAST BM DOCUMENTED YESTERDAY. PATIENT HAS GOOD APPETITE AND ATE BREAKFAST WELL. BUENROSTRO PLACED TO COLLECTION 24 HOUR URINE. BUENROSTRO TO BE REMOVED AFTER 24 HOUR URINE COLLECTION COMPLETE. BUENROSTRO PATENT AND DRAINING. SKIN APPEARS WNL. PATIENT REPOSITIONING SELF IN BED. BED LOW, CALL LIGHT IN REACH. CARE CONTINUES.
[2023-05-18 08:48] LABS: Source, Urine Foley catheter
[2023-05-18 09:16] LABS: Appearance, Urine Clear (Clear); Bilirubin, Urine Neg (Neg); Blood, Urine Neg (Neg); Glucose Qualitative, Urine Neg (Neg); Ketones, Urine Neg (Neg); Leukocyte Esterase, Urine Neg (Neg); Nitrite, Urine Neg (Neg); Protein, Urine Neg (Neg); Urobilinogen, Urine NORM (Normal)
[2023-05-18 09:22] LABS: Color, Urine No Color (P-Yellow)
--- NOTE | 2023-05-18 12:38 | NUR ---
DR. ROSSI CALLED AND UPDATED THAT PATIENT COMPLAINING OF CHEST PRESSURE AND SOB. RECEIVED ORDERS FOR EKG, TROPONIN AND CHEST XR.
--- NOTE | 2023-05-18 13:24 | NUR ---
DR. ROSSI CALLED AND UPDATED ON PATIENT STATUS. INFORMED THAT EKG AND CHEST XR COMPLETED. INFORMED THAT TROPONIN BEING DRAWN NOW. INFORMED BP INCREASED SIGNIFICANTLY AND QUICKLY. INFORMED THAT ESMOLOL DRIP RESTARTED AND THAT BLOOD PRESSURE IMPROVING. INFORMED THAT PATIENT REPORTS CHEST PRESSURE IS LESS AND THAT PATIENT SPEECH IMPROVING. INFORMED THAT DAUGHTER REPORT SHE WILL BE HERE TO VISIT AROUND 1530.
--- NOTE | 2023-05-18 13:44 | NUR ---
PATIENT A AND O X 4. SPEECH IMPROVED FROM WHEN BP HIGH. AFEBRILE. HR IN THE 80S. SBP IN THE 150S. ESMOLOL DRIP AT 50 MCG / KG/ MINUTE. CARE CONTINUES.
--- NOTE | 2023-05-18 16:33 | NUR ---
PATIENT AFEBRILE. HR IN THE 70S. SBP IN THE 180S. ESMOLOL DRIP RESTARTED AT 50 MCG/ KG/ MINUTE. NO OTHER ACUTE CHANGES TO NOTE ON AT THIS TIME. PATIENT HAS NO COMPLAINTS. PATIENT VISITING WITH DAUGHTER AND DAUGHTER'S FRIEND. CARE CONTINUES.
--- NOTE | 2023-05-18 18:41 | NUR ---
SHIFT SUMMARY PATIENT REMAINED ALERT AND ORIENTED X 4, AFEBRILE. PATIENT HAD EPISODE OF CHEST PRESSURE, FEELING HOT, FEELING SOB. BP TAKEN AND SBP IN THE 150S. WHILE EKG BEING PERFORMED, PATIENT STARTING TO HAVE MORE DIFFICULTY THAN USUAL FORMING WORDS; NO DEFICITS NOTED TO R OR L SIDES. BP RETAKEN AND UP TO 180S. ESMOLOL DRIP WAS RESTARTED AT THIS TIME. PATIENT HAS HAD NO OTHER EPISODES LIKE THIS THE REST OF THE SHIFT. ESMOLOL DRIP PRESENTLY ON SB. ESMOLOL UP TO MAX OF 100 MCG/ KG/ MINUTE THIS SHIFT. PATIENT REMAINED SATTING MID TO HIGH 90S ON RA. PATIENT REMAINED IN SR WITH FIRST DEGREE BLOCK, HR 60S TO 90S. SBP 90S TO 190S. NO BM THIS SHIFT. PATIENT HAD GOOD APPETITE. BUENROSTRO DRAINED 1640 MLS OF URINE THIS SHIFT. URINE ON ICE FOR 24 URINE COLLECTION THAT ENDS AT 0800 IN THE AM. NO CHANGES TO SKIN NOTED. PATIENT REPOSITIONED HIPS FREQUENTLY IN BED. COZAAR DOSE INCREASED THIS SHIFT. DENITA STARTED THIS SHIFT. PATIENT HAS NO COMPLAINTS AT THIS TIME. BED LOW, CALL LIGHT IN REACH. REPORT WILL BE GIVEN TO ASSUMING DIE PRESSER NURSE SHORTLY.
[2023-05-19] VITALS (40 sets, daily range): BP systolic 110–193; BP diastolic 55–124
[2023-05-19 03:52] LABS: BASOPHILS ABSOLUTE AUTO 0.02 K/mm3 (0.00-0.23); BASOPHILS PERCENT AUTO 0 % (0-2); EOSINOPHILS ABSOLUTE AUTO 0.14 K/mm3 (0.00-0.68); EOSINOPHILS PERCENT AUTO 2 % (0-6); Hematocrit 36.9 % (33.0-51.0); Hemoglobin 11.9 g/dL (11.5-16.0); IMMATURE GRAN ABSOLUTE AUTO 0.02 K/mm3 (0.00-0.10); IMMATURE GRAN PERCENT AUTO 0 % (0-1); LYMPHOCYTES ABSOLUTE AUTO 1.03 K/mm3 (0.84-5.20); LYMPHOCYTES PERCENT AUTO 14 % (21-46); MONOCYTES ABSOLUTE AUTO 0.49 K/mm3 (0.16-1.47); MONOCYTES PERCENT AUTO 7 % (4-13); Mean Corpuscular HGB 27.9 pg (26.0-34.0); Mean Corpuscular HGB Conc 32.2 g/dL (31.5-36.5); Mean Corpuscular Volume 86 fL (80-100); Mean Platelet Volume 10.3 fL (9.1-12.4); NEUTROPHILS ABSOLUTE AUTO 5.62 K/mm3 (1.96-9.15); NEUTROPHILS PERCENT AUTO 77 % (41-73); Platelet Count 168 K/mm3 (150-400); RDW Coefficient Variation 14.3 % (11.7-14.2); RDW Standard Deviation 44.9 fL (35.1-46.3); Red Blood Cell Count 4.27 M/mm3 (3.80-5.20); White Blood Cell Count 7.32 K/mm3 (4.00-11.30)
[2023-05-19 04:27] LABS: Albumin, Blood 3.4 g/dL (3.4-5.0); Anion Gap 8 mmol/L (6-16); Blood Urea Nitrogen 28 mg/dL (8-24); Bun/Creatinine Ratio 22.2 (12.0-20.0); CO2, Blood 23 mmol/L (21-32); Calcium, Blood 9.2 mg/dL (8.5-10.1); Chloride, Blood 107 mmol/L (98-108); Creatinine, Blood 1.26 mg/dL (0.40-1.00); Glomerular Filtration Rate 43 (60-); Glucose, Blood 115 mg/dL (70-99); Magnesium, Blood 1.9 mg/dL (1.6-2.4); Phosphorus, Blood 3.8 mg/dL (2.5-4.9); Potassium, Blood 4.3 mmol/L (3.5-5.5); Sodium, Blood 138 mmol/L (136-145)
--- NOTE | 2023-05-19 06:39 | NUR ---
SHIFT SUMMARY PT A/O, NO EPISODES OF SLURRED SPEECH. SR W/1ST DEGREE AV BLOCK. SBP 99-135, ESMOLOL REMAINED OFF THROUGHOUT THE SHIFT. SPO2 > 96% ON ROOM AIR, LUNGS CTA. TOLERATES PO WELL, NO NAUSEA. BUENROSTRO IN PLACE FOR COLLECTION OF 24 HOUR URINE. PLAN IS TO D/C BUENROSTRO WHEN URINE COLLECTION COMPLETE. SKIN INTACT. PIV X1, SL. NO FAMILY AT BEDSIDE. POC ONGOING.
--- NOTE | 2023-05-19 06:53 | NUR ---
DR. ROSSI TO BEDSIDE TO ROUND PER MD, OK TO SHOWER OFF MONITOR IF BP REMAINS STABLE. POSS TRANSFER OUT OF ICU TODAY IF ABLE TO REMAIN OFF ESMOLOL. UPDATE MD WITH ANY CHANGES. POC ONGOING.
--- NOTE | 2023-05-19 18:51 | NUR ---
SUMMARY PT RESTING IN BED. HAD A GOOD DAY UNTIL THIS EVENING WHEN SHE STARTED HAVING SOB AND CP. PT SOUNDED AUDIBLY WHEEZY. SPO2 99% ON RA. DR. ROSSI TO BEDSIDE QUICKLY. EKG AND TROPONIN DONE. GAVE DOSE OF LABETOLOL AND MORPHINE IV. STARTED ON PO DOSE OF METOPROLOL. PT HAVING MUSCLE SPASMS THROUGHOUT BODY THAT WOULD COME IN WAVES ANY WHERE FROM CHEST TO BACK TO SIDES. PT WRITHING IN PAIN WITH SPASMS. STARTED MUSCLE RELAXER WELL. FIRST DOSE OF MORPHINE DID NOT HAVE MUCH EFFECT SO ANOTHER DOSE WAS GIVEN. PT WAS HYPERTENSIVE DURING EPISODE BUT HR REMAINS IN 80'S. STAYED WITH PT FOR REASSURANCE AND HELPED REPOSITION TO HER COMFORT. DAUGHTER NIKKIE UPDATED BY DR. ROSSI AND THIS RN WELL. PT IS NOW SEEING AND HEARING THINGS IN THE ROOM THAT ARE NOT THERE. REORIENTING AND REASSURING PT NEEDED. 24 HOUR URINE IN PROGRESS. PT STAYING ICU STATUS.
[2023-05-20] VITALS (42 sets, daily range): BP systolic 77–189; BP diastolic 32–106
--- NOTE | 2023-05-20 05:36 | NUR ---
SHIFT SUMMARY UPON INITIAL ASSESSMENT OF PATIENT SHE WAS ALERT AND ORIENTED TO SELF AND WAS ABLE TO SAY THIS RN WAS A NURSE. WAS CONFUSED TO PLACE, DATE, AND TIME. SPEECH WAS SLURRED, EQUAL STRENGTH, NO FACIAL DROOP. PATIENT WAS ABLE TO SLEEP OVERNIGHT AND MENTATION HAS CLEARED ALMOST BACK TO BASELINE. ALERT AND ORIENTED X3, AWARE OF SITUATION AND PLACE, CONFUSED TO DATE, SLURRING HAS SUBSIDED. PATIENT REMAINS ON ROOM AIR WITH SPO2 94%. MEDICATED ONCE PER EMAR WITH HYDRALAZINE FOR HYPERTENSION AND WITH MORPHINE FOR CHEST PAIN. WILL CONTINUE TO MONITOR. CALL LIGHT WITHIN REACH.
--- NOTE | 2023-05-20 12:58 | NUR ---
AM SUMMARY ALERT, ORIENTED X4, PLEASANT, COOPERATIVE. REPORTED SHE SLEPT BETTER LAST NIGHT. SR WITH 1ST DEGREE BLOCK, BP LABILE. INTITALLY SYSTOLIC STABLE, ABOUT 0900 SYSTOLIC DROPPED TO 70'S, PATIENT REPORTED MILD LIGHT-HEADEDNESS, SOMEWHAT PALE. OBTAINED ORDER FROM DR ROSSI TO BOLUS 500 ML OVER 2 HOURS, DECREASED AND DELAY METOPROLOL AND LOSARTAN, AND DC TIZANIDINE. BP STABLIZED IN 120-130 SYSTOLIC AFTER 320 ML OF BOLUS, BOLUS WAS STOPPED. WILL CONTINUE TO MONITOR. BED BATH DONE, LINENS CHANGED, PORTER العراقي. SBA UP TO BSC AND RECLINER.
--- NOTE | 2023-05-20 14:19 | NUR ---
EPISODE AGITATION/SLURRED SPEECH ENTERED ROOM AT 1315 AND FOUND PATIENT TO BE AGITATED IN RECLINER AND SLURRED SPEECH. ASSISTED PATIENT BACK TO BED, BLOOD GLUCOSE 130'S. HR 70'S, BP 130'S SYSTOLIC. PATIENT DENIED CHEST PAIN, SOB, BUT VERBALIZED AGITATION AND CONFUSION TO WHY HER SPEECH WAS SLURRED. CALLED DR ROSSI TO BEDSIDE. HE STATED THIS WAS SIMILAR TO PREVIOUS EPISODES BUT WITHOUT THE CHEST PAIN AND HTN. OBTAINED ORDERS FOR HEAD CT, BILAT CAROTID US, AND 1 GM KEPPRA IV NOW. COMPLETED HEAD CT AND IV KEPPRA, CAROTID US PLANNED TO COMPLETE AT 1600.
--- NOTE | 2023-05-20 18:43 | NUR ---
SHIFT SUMMARY ALERT, ORIENTED, PLEASANT, COOPERATIVE GENERALLY. TWO EPISODES OF AGITATION, ANXIETY, SLURRED SPEECH, CONFUSION. THIS WAS WITHOUT CP, HTN, SOB. VSS STABLE IN AFTERNOON, SBP WNL. TELE SR WITH 1ST DEGREE. HEAD CT RECHECKED THIS SHIFT, NORMAL. ORDER PLACED FOR BILAT CAROTID US AND FOR HEAD MRI, SCREENING FORM FAXED. ROOM AIR. URINARY URGENCY, PULL UPS IN PLACE. 1 ASSIST TO BSC. PENDING LABS FOR PHEOCHROMOCYTOMA. WILL REPORT TO BANKING AND FINANCE INSTRUCTOR RN.
--- NOTE | 2023-05-20 19:39 | NUR ---
ASSUMED CARE OF PT AT 1900. REPORT RECEIVED AT BEDSIDE. PT PRESENTS IN BED. IN NO APPARENT DISTRESS. BLOOD PRESSURES WNL. PT PARTICIPATES IN BEDSIDE REPORT. PT IN BED AT AN ANGLE, AND TOWARDS THE LOWER END OF BED. PT WAS OFFERED TO BE REPOSITIONED. SHE STATES THAT SHE LIKES TO LAY IN THIS POSTION. WILL REVIEW CHART AND PLAN OF CARE FOR THIS PT.
--- NOTE | 2023-05-20 22:48 | NUR ---
PT HAS GOTTEN HERSELF OUT OF BED AND TO BEDSIDE COMMODE. SHE DID NOT REQUEST ASSIST WITH GETTING UP. HAD REMOVED HER MONITORING WIRES. PT ASSISTED BACK TO BED. BED ALARM PLACED TO BED. PT DID REQUEST PUREWICK SYSTEM WHICH SHE HAD USED EARLIER IN HER HOSPITAL STAY. BRITTANY WINSTON GRACIOUSLY PLACED PUREWICK. WILL CONTINUE TO MONITOR PT.
[2023-05-21] VITALS (47 sets, daily range): BP systolic 66–210; BP diastolic 52–144
[2023-05-21 03:59] LABS: Hematocrit 37.1 % (33.0-51.0); Hemoglobin 11.7 g/dL (11.5-16.0); Mean Corpuscular HGB 27.3 pg (26.0-34.0); Mean Corpuscular HGB Conc 31.5 g/dL (31.5-36.5); Mean Corpuscular Volume 87 fL (80-100); Mean Platelet Volume 10.5 fL (9.1-12.4); Platelet Count 132 K/mm3 (150-400); RDW Coefficient Variation 14.6 % (11.7-14.2); RDW Standard Deviation 46.3 fL (35.1-46.3); Red Blood Cell Count 4.28 M/mm3 (3.80-5.20); White Blood Cell Count 2.98 K/mm3 (4.00-11.30)
[2023-05-21 04:25] LABS: Albumin, Blood 3.4 g/dL (3.4-5.0); Bilirubin, Total 0.4 mg/dL (0.1-1.0); Bun/Creatinine Ratio 23.6 (12.0-20.0); Calcium, Blood 8.7 mg/dL (8.5-10.1); Creatinine, Blood 1.23 mg/dL (0.40-1.00); Globulin, Blood 3.3 g/dL (2.2-4.0); Phosphorus, Blood 3.3 mg/dL (2.5-4.9); Potassium, Blood 4.4 mmol/L (3.5-5.5); Total Protein, Blood 6.7 g/dL (6.4-8.2)
--- NOTE | 2023-05-21 07:00 | NUR ---
ASSUMPTION OF CARE PT IS ALERT AND ORIENTED WITH PLEASANT AFFECT. SHE PARTICIPATES IN CONVERSATION AND PROVIDES INFORMATION DURING BEDSIDE REPORT. SHE REPORTS FEELING "FINE" DURING THIS TIME. SBP 150S-170S. HR IN 70S ON MONITOR. PUREWICK IN PLACE. BED IN LOW POSITION AND CALL LIGHT WITHIN REACH. DR ROSSI AT BEDSIDE.
--- NOTE | 2023-05-21 07:25 | NUR ---
PT HAS REMAINED WITHOUT DYSPHASIA, VERTIGO, OR COMPLAINTS OF PAIN. BURDEN IN TO SEE PT. PT HAS HAD PUREWICK IN PLACE. VOIDS 700 ML. MOVES ABOUT BED ON HER OWN. REPORT GIVEN TO ONCOMING RN.
--- NOTE | 2023-05-21 11:41 | NUR ---
UPDATE PT SAT IN RECLINER FOR A COUPLE HOURS AND REQUESTED TO GO BACK TO BED. PT IS A 1 PERSON ASSIST. PT REPOSITIONED SELF IN BED. HR 60S-90S. SBP 120S-140S. PT HAD AN EPISODE OF CP THAT SHE DESCRIBED "SHARP STABBING". SHE WAS ABLE TO DIRECTLY POINT AT SPOT ON L CHEST AND REPORTED INCREASED PAIN WITH PRESSURE. THIS PAIN RESOLVED QUICKLY AND HAS NOT REOCCURED. PT REPORTS SHE RECEIVES HOME HEALTH AT HOME. SHE EXPRESSES FRUSTRATION WITH LOSING INDEPENDENCE AND HOW ADLS ARE BECOMIHNG MORE DIFFICULT. PT LOOKING FORWARD TO DAUGHTER AND GRANDSON VISITING THIS AFTERNOON. MRI SCHEDULED FOR AROUND NOON. PCU STATUS. BED IN LOW POSITION, CALL LIGHT WITHIN REACH.
--- NOTE | 2023-05-21 12:34 | NUR ---
MRI PT TAKEN TO MRI VIA MANUAL ARTS THERAPY TEACHER AND WHEELCHAIR. IMAGING TOOK APPROXIMATELY 20MIN. PT NOW BACK IN ROOM.
--- NOTE | 2023-05-21 12:35 | NUR ---
PT ASSISTED BACK TO BED BY SUSTAINABILITY PROJECT MANAGER. PT REPORTING SOB AND CP. PT PLACED BACK ON CONTINUOUS MONITORING. PT IS ALERT, MAKING EYE CONTACT AND FOLLOWING COMMANDS. SHE REPORTS CP FEELS THE SAME EPISODE EARLIER IN THE DAY THAT IS DESCRIBED "STABBING". RHYTHM UNCHANGED FROM EARLIER, RATE IN 80S-90S. SBP 170S. SPO2 >95%, LUNGS CLEAR THROUGHOUT. PT ANXIOUS. SHE PARTICIPATES IN DEEP BREATHING. SHE APPEARS MORE CALM BUT HAS DIFFICULTY FINDING WORDS BUT ANSWERS QUESTIONS APPROPRIATELY. SBP NOW 130S. HR 70S. SHE IS TALKING TO HER DAUGHTER ON THE TELEPHONE AND FINISHING LUNCH. CALL LIGHT WITHIN REACH.
--- NOTE | 2023-05-21 14:05 | NUR ---
Spiritual Care Visit. Pt. is awake in bed and she welcomes my visit. Pt. is unsettled by not being able to focus and feeling dizzy, but the Pt. is pleasant. Facilitate a life review and Pt. verbalizes an expectation that her daughter will be arriving later today. Pt. displays evidence of being aware but frustrated about the dizziness. Prayed with Pt. Pt. verbalized gratitude for the spiritual care visit and welcomed this laborer chicken farm to return.
--- NOTE | 2023-05-21 14:45 | NUR ---
TRANSFER TO PCU PT TAKEN TO PCU 6 VIA BED. CELL PHONE AND BELONGINGS TAKEN WITH PT. PT'S DAUGHTER ERICA NOTIFIED OF ROOM CHANGE.
--- NOTE | 2023-05-21 14:56 | NUR ---
ARRIVAL TO PCU PT ARRIVED TO PCU6 AT 1445. REPORT TAKEN FROM YIMI RN, THIS RN TO ASSUME CARE. PT SLID TO BED W/ STAFF ASSISTANCE. BP 154/101. HR 70'S. SPO2 >95% ON RA. NO VISIBLE ACCESSORY MUSCLE USE OR TACHYPNEA. PT ALERT AND ORIENTED X4, TALKING WITH STAFF. APPEARS ANXIOUS ON TRANSFER. APHASIA NOTED AT TIMES WHILE COMMUNICATING. PUPILS EQUAL AND REACTIVE TO LIGHT. RECRUITMENT DIRECTOR STRENGTH EQUAL BILATERALLY. PULSES STRONG ON PALPATION. PUREWICK IN PLACE, ATTACHED TO SUCTION. PT ORIENTED TO ROOM/UNIT. CALL LIGHT WITHIN REACH, BED IN LOWEST POSITION. BED ALARM ON.
--- NOTE | 2023-05-21 17:17 | NUR ---
END OF SHIFT NOTE PT ALERT AND ORIENTED X4. HR 70-90'S, NSR. BP VARIED FOLLOWING TRANSFER TO PCU; 2 HYPERTENSIVE EVENTS (UP TO 210 SYSTOLIC) NOTED W/ APHASIA AND AGITATION. PT REPORTS HEADACHE W/ HYPERTENSION, TYLENOL ADMINISTERED PER EMAR. HOB ELEVATED W/ BP DECREASE RESULT. AGITATION RESOLVES WITH DECREASE IN BP. SPO2 >93% ON RA, AUDIBLE WHEEZE AT TIMES BUT LUNG SOUNDS REMAIN CLEARON AUSCULTATION. PT INSTRUCTED ON DEEP BREATHING TECHNIQUES W/ IMPROVEMENT IN WHEEZE. PT VOICES FRUSTRATION WORKING THROUGH EPISODES OF APHASIA. ABLE TO TOLERATE PO INTAKE WELL. PUREWICK IN PLACE ATTACHED TO SUCTION. PT REPOSITIONED SELF INDEPENDENTLY OR W/ MINIMAL ASSISTANCE T/O AFTERNOON. PT'S FAMILY AT BEDSIDE AT THIS TIME. NO OTHER EVENTS. CALL LIGHT WITHIN REACH, BED IN LOWEST POSITION. BED ALARM ON. WILL REPORT TO ONCFABIANA ALLEN RN.
[2023-05-22] VITALS (14 sets, daily range): BP systolic 82–160; BP diastolic 34–97
[2023-05-22 04:41] LABS: Albumin, Blood 3.5 g/dL (3.4-5.0); Anion Gap 5 mmol/L (6-16); Blood Urea Nitrogen 35 mg/dL (8-24); Bun/Creatinine Ratio 25.5 (12.0-20.0); CO2, Blood 26 mmol/L (21-32); Calcium, Blood 9.3 mg/dL (8.5-10.1); Chloride, Blood 108 mmol/L (98-108); Creatinine, Blood 1.37 mg/dL (0.40-1.00); Glomerular Filtration Rate 39 (60-); Glucose, Blood 115 mg/dL (70-99); Phosphorus, Blood 3.5 mg/dL (2.5-4.9); Potassium, Blood 4.7 mmol/L (3.5-5.5); Sodium, Blood 139 mmol/L (136-145)
--- NOTE | 2023-05-22 05:26 | NUR ---
SHIFT SUMMARY ASSUMED CARE OF PT AT 1900. PT IS A/OX4 BUT FORGETFUL. INITIALLY PT ANSWERED ORIENTATION QUESTIONS CORRECTLY BUT WOULD FORGET OFTEN. PT AWOKE AT ONE TIME THINKING SHE WAS IN AN APPARTMENT BUT WAS EASILY REORIENTED. HEART SOUNDS REGULAR. LUNG SOUNDS CLEAR. PT SLEPT MOST OF THE NOC. NO NEW COMPLAINTS. PT USED PURCHAROCK T/O THE NOC.
--- NOTE | 2023-05-22 14:14 | NUR ---
Spiritual Care Visit. Pt. is awake in bed and welcomes my visit. Pt. is pleasant but a little unsettled by a lack of a clear diagnosis of her condition. Pt. displays evidence of awareness, engagement and a keen sense of humor. Facilitate more life review and focus upon her relational support. Pryaed with Pt. Pt. verbalized gratitude for the spiritual care visit.
--- NOTE | 2023-05-22 15:50 | NUR ---
NEURO UPDATE PT REMAINS ALERT AND ORIENTED X4 BUT HAS BEEN REPORTING HALLUCINATIONS THIS AFTERNOON. PT STATES "I KEEP SEEING THESE KIDS TO THE RIGHT SIDE OF MY BED THAT ARE DANCING AND TRYING TO TALK TO ME BUT WHEN I TURN MY HEAD TO LOOK AT THEM ALL I SEE IS A WALL." PT REPORTS THAT SHE KNOWS SHE IS IN THE HOSPITAL AND THAT THE KIDS ARE NOT ACTUALLY IN HER ROOM BUT STATES SHE CONTINUES TO SEE THEM. SHE ALSO TOLD A FRIEND ON THE PHONE THAT SHE DID NOT REALIZE THIS RN AND STAFF WERE NURSES, SHE THOUGHT "THEY WERE HERE FOR A DEMOCRAT." NO OTHER NEURO CHANGES OBSERVED AT THIS TIME. KEPPRA ADMINISTERED PER EMAR. BP REMAINS STABLE.
--- NOTE | 2023-05-22 17:57 | NUR ---
END OF SHIFT NOTE PT A&OX4, SEE PREVIOUS NOTE REGARDING NEURO UPDATE. PT ABLE TO CALL APPROPRIATELY AND MAKE NEEDS KNOWN TO STAFF. COOPERATIVE W/ CARE. SBP 80-160'S, DENIES CHEST PAIN/PRESSURE. HR 60-70'S, SR. SPO2 >95% ON RA, DENIES SOB AT REST. DYSPNEA NOTED W/ EXERTION. NO WITNESSED EPISODES OF APHASIA THIS SHIFT. PT UP TO CHAIR THIS AFTERNOON, TOLERATING THIS WELL. PUREWICK IN PLACE DUE TO URINARY URGENCY, DRAINING W/ SUCTION. BM THIS SHIFT. 1P ASSIST. NO OTHER EVENTS. CALL LIGHT WITHIN REACH, BED IN LOWEST POSITION. WILL REPORT TO ONCOMING NOC RN.
[2023-05-23] VITALS (10 sets, daily range): BP systolic 109–213; BP diastolic 67–100
--- NOTE | 2023-05-23 04:54 | NUR ---
SHIFT SUMMARY ASSUMED CARE OF PTAT 1899. PT IS A/OX4. HEART SOUNDS REGULAR. LUNG SOUNDS CLEAR. PT 1P SBA TO BSC. PT CONTINUED TO HAVE HALLUCINATIONS OF CHILDREN IN ROOM. PT REMAINED ORIENTED THOUGH.
[2023-05-23 06:03] LABS: Albumin, Blood 3.6 g/dL (3.4-5.0); Anion Gap 4 mmol/L (6-16); Blood Urea Nitrogen 34 mg/dL (8-24); Bun/Creatinine Ratio 29.1 (12.0-20.0); CO2, Blood 24 mmol/L (21-32); Calcium, Blood 9.1 mg/dL (8.5-10.1); Chloride, Blood 111 mmol/L (98-108); Creatinine, Blood 1.17 mg/dL (0.40-1.00); Glomerular Filtration Rate 47 (60-); Glucose, Blood 116 mg/dL (70-99); Phosphorus, Blood 3.8 mg/dL (2.5-4.9); Potassium, Blood 4.6 mmol/L (3.5-5.5); Sodium, Blood 139 mmol/L (136-145)
[2023-05-23] MEDS ORDERED: KEPPRA250 M1 PO (08:11)
[2023-05-23] MEDS ORDERED: METO25 PO (08:12)
[2023-05-23] MEDS ORDERED: LOSA50 PO (08:12)
--- NOTE | 2023-05-23 11:23 | NUR ---
TRANSFER/MORNING SUMMARY ALERT, ORIENTED, PLEASANT, COOPERATIVE. MILD EXPRESSIVE APHASIA AT TIMES, NOTED SOME IMBALANCE WITH SBA AMBULATION WITH FWW. SR 80'S ON TELE. ROOM AIR. REPORTS SOME SHORTNESS OF BREATH WITH EXERTION. TOLERATING DIET AND PO LIQUIDS. VOIDING WELL. SEEN BY OT THIS AM, MINI-COG EVAL . ORDER FOR PT EVAL ON CHART. RECOMMENDING HOME HEALTH PT. SIGNIFICANT ORTHOSTATIC HYPOTENSION, 140'S SBP TO 75 SBP WHEN STANDING, NO TACHYCARDIA. DR ROSSI RESTARTED STRATTERA, KEEPING PATIENT OVERNIGHT TO MONITOR RESPONSE TO STRATTERA AND SEE IF ORTHOSTATICS IMPROVE. MED STATUS WITH TELE. WILL REPORT TO MEDICAL RN NICANOR PHAM.
--- NOTE | 2023-05-23 12:11 | NUR ---
TRANSFER SUMMARY: PT TRANSFERRED TO ROOM 311. REPORT RECEIVED FROM SANTOS WINSLOW RN. PT ARRIVED VIA WHEELCHAIR. SHE IS ALERT AND ORIENTED TIMES 3-4. REPORTED TO BE FORGETFUL AT TIMES. NO EXPRESSIVE APHASIA OBSERVED WITH INTERACTION. SHE WAS PLEASANT AND ABLE TO FOLLOW DIRECTIONS/ANSWER QUESTIONS. PT STOOD WITH STANDBY ASSIST TO TRANSFER TO BED AND DENIED DIZZINESS. PT ORIENTED TO ROOM/CALL LIGHT/FALL PRECAUTIONS. PT VU. CALL LIGHT IN REACH AND BED ALARM SET AND IN LOW POSITIONS. PT DENIES ANY OTHER CONCERNS OR NEEDS. PT GIVEN LUNCH TRAY AND ICE WATER. TELE NOTIFIED OF ROOM CHANGE AND REPORTED TO BE IN NSR.
--- NOTE | 2023-05-23 18:09 | NUR ---
SHIFT SUMMARY: PT A/O X 4 BUT FORGETFUL AT TIMES, PLEASANT AND COOPERATIVE. STANDBY ASSIST WITH WALKER AND GB. PT ORTHO VITALS COMPLETED AT 3:15 AND ELEVATED. MANUAL BP COMPLETED TO VERIFY AND WAS 222/100. PT WAS ASYMPTOMATIC. PO HYDARLAZINE ORDERED AND GIVEN TO PT. PT BP CHECKED 30 MINUTES LATER AND WAS 119/68. PT TOLERATED WELL AND DID NOT REPORT ANY SYMPTOMS. PT HAS NO CONCERNS AT THIS TIME, RESTING IN BED WATCHING TV AND PLAYING GAMES ON HER CELL PHONE.
[2023-05-24 02:27] VITALS: BP 154/99
--- NOTE | 2023-05-24 05:02 | NUR ---
SHIFT SUMMARY 78 YR F ADMITTED ON 05/16/23 FOR HYPERTENSIVE URGENCY. FULL CODE. NO ACUTE CHANGES THIS SHIFT. PT IS A VERY PLEASANT WOMAN AND IS COOPERATIVE WITH CARE. SHE HAD NO EPISODES OF CONFUSION THIS SHIFT. SHE CALLS APPROPRIATELY AND WAITS FOR ASSISTANCE BEFORE AMBULATING TO THE BATHROOM. BP HAS REMAINED WNL THIS SHIFT. NO C/O PAIN OR DISCOMFORT THIS SHIFT. SHE APPEARS TO HAVE SLEPT WELL FOR MOST OF THIS SHIFT.
[2023-05-24 07:17] VITALS: BP 145/87
[2023-05-24] MEDS ORDERED: APHEN325 M1 PO (12:30)
[2023-05-24] MEDS ORDERED: HYDRA25 PO (12:31)
[2023-05-24] MEDS ORDERED: ATOM10 PO (12:37)
--- NOTE | 2023-05-24 13:00 | NUR ---
DISCHARGE HOME DISCHARGE ORDERS FOR HOME WITH HOME HEALTH RECEIVED. PATIENT IS AGREEABLE TO THE PLAN. SHE REPORTS SHE WAS BEING SEEN BY HOME HEALTH 3X PER WEEK PRIOR TO ADMIT. A NEIGHBOR PICKED HER UP AND WILL BRING HER TO [facility] FOR HER NEW MEDICATIONS. PROVIDED HER WITH SHOES, SWEAT PANTS AND A SHIRT SHE DOES NOT HAVE CLOTHING AVAILABLE. REVIEWED DC INSTRUCTIONS WITH HER WELL NEW MEDS. PATIENT ESCORTED TO PRIVATE VEHICLE BY CIVIL MANAGER. STABLE AT TIME OF DISCHARGE.
[2023-05-25 07:08] LABS: NORMETANEPHRINE, PL 64.7 pg/mL (0.0-285.2)
[2023-05-26 21:09] LABS: DOPAMINE, URINE 74 ug/L (Undefined)
[2023-05-27 00:09] LABS: METANEPHRINE, UR 101 ug/L (Undefined)
== END 2023-05-24 12:49 | disposition home health service (06) | DRG 57 ==
LOC: ER 14:12 → MEDS 14:13 → ICUE 05-16 15:20 → MEDS 05-16 15:20 → ICUE 05-17 15:27 → PCU 05-21 14:39 → MEDS 05-23 12:04
PROVIDERS: Emergency Medicine; Family Medicine; Family Medicine Adult Medicine; ADMIT Internal Medicine
DX: G90.3 Multi-system degeneration of the autonomic nervous system (principal); I16.1 Hypertensive emergency; R47.01 Aphasia; I16.0 Hypertensive urgency; R47.1 Dysarthria and anarthria; K58.9 Irritable bowel syndrome, unspecified; R56.9 Unspecified convulsions; G25.81 Restless legs syndrome; J44.9 Chronic obstructive pulmonary disease, unspecified; E78.5 Hyperlipidemia, unspecified; I69.320 Aphasia following cerebral infarction; F32.A Depression, unspecified; K21.9 Gastro-esophageal reflux disease without esophagitis; I25.10 Atherosclerotic heart disease of native coronary artery without angina pectoris; N18.30 Chronic kidney disease, stage 3 unspecified; E11.22 Type 2 diabetes mellitus with diabetic chronic kidney disease; I12.9 Hypertensive chronic kidney disease with stage 1 through stage 4 chronic kidney disease, or unspecified chronic kidney disease; R40.4 Transient alteration of awareness; Z87.820 Personal history of traumatic brain injury; Z86.711 Personal history of pulmonary embolism; Z88.2 Allergy status to sulfonamides; Z88.8 Allergy status to other drugs, medicaments and biological substances; Z88.5 Allergy status to narcotic agent; Z88.6 Allergy status to analgesic agent; Z79.84 Long term (current) use of oral hypoglycemic drugs; Z96.652 Presence of left artificial knee joint; Z90.13 Acquired absence of bilateral breasts and nipples
CPT/HCPCS: 36415; 51702; 70450; 70551; 71045; 74150; 80048; 80053; 80069; 81003; 82330; 82533; 82947; 83735; 83835; 84100; 84443; 84484; 85025; 85027; 93005; 93010; 93880; 96372; 97129; 97161; 97165; 97530; 97535; 99285-25; A9270; G0378; J0360; J1644; J1953; J2270; J7040

== ENCOUNTER 2023-05-27 16:17 | Emergency (ER) | payer MEDICARE, OTHER ==
[~2023-05-27] VITALS: Ht 170.2 cm; Wt 70.8 kg
[~2023-05-27 16:17] MED LIST changes: +AMLO5 PO; +APHEN325 M1 PO; +ATOM10 PO; +HYDRA25 PO; +KEPPRA250 M1 PO; +LOSA50 PO; +METO25 PO
[2023-05-27 17:47] LABS: BASOPHILS ABSOLUTE AUTO 0.03 K/mm3 (0.00-0.23); BASOPHILS PERCENT AUTO 0 % (0-2); EOSINOPHILS PERCENT AUTO 1 % (0-6); Hematocrit 34.8 % (33.0-51.0); IMMATURE GRAN ABSOLUTE AUTO 0.03 K/mm3 (0.00-0.10); IMMATURE GRAN PERCENT AUTO 0 % (0-1); LYMPHOCYTES ABSOLUTE AUTO 2.01 K/mm3 (0.84-5.20); LYMPHOCYTES PERCENT AUTO 28 % (21-46); MONOCYTES ABSOLUTE AUTO 0.42 K/mm3 (0.16-1.47); MONOCYTES PERCENT AUTO 6 % (4-13); Mean Corpuscular HGB 27.6 pg (26.0-34.0); Mean Corpuscular HGB Conc 31.6 g/dL (31.5-36.5); Mean Corpuscular Volume 87 fL (80-100); Mean Platelet Volume 9.7 fL (9.1-12.4); NEUTROPHILS ABSOLUTE AUTO 4.62 K/mm3 (1.96-9.15); NEUTROPHILS PERCENT AUTO 64 % (41-73); Platelet Count 223 K/mm3 (150-400); RDW Coefficient Variation 14.1 % (11.7-14.2); RDW Standard Deviation 45.1 fL (35.1-46.3); Red Blood Cell Count 3.99 M/mm3 (3.80-5.20); White Blood Cell Count 7.21 K/mm3 (4.00-11.30)
[2023-05-27 18:10] LABS: Albumin, Blood 3.4 g/dL (3.4-5.0); Bilirubin, Total 0.3 mg/dL (0.1-1.0); Bun/Creatinine Ratio 22.7 (12.0-20.0); Calcium, Blood 8.7 mg/dL (8.5-10.1); Creatinine, Blood 1.1 mg/dL (0.40-1.00); Globulin, Blood 3.4 g/dL (2.2-4.0); Potassium, Blood 4.9 mmol/L (3.5-5.5); Total Protein, Blood 6.8 g/dL (6.4-8.2)
[2023-05-27 18:12] LABS: Source, Urine Straight Cath
[2023-05-27 18:21] LABS: Appearance, Urine Clear (Clear); Bilirubin, Urine Neg (Neg); Blood, Urine 2+ (Neg); Color, Urine Yellow (P-Yellow); Glucose Qualitative, Urine Neg (Neg); Ketones, Urine Neg (Neg); Leukocyte Esterase, Urine 1+ (Neg); Nitrite, Urine Neg (Neg); Protein, Urine 1+ (Neg); Urobilinogen, Urine NORM (Normal)
[2023-05-27 18:46] LABS: Bacteria Few /hpf; Squamous Epithelial Cells Rare /hpf (Few)
[2023-05-27 20:00] VITALS: BP 128/78
== END 2023-05-27 20:47 | disposition home or self-care (01) ==
LOC: ER 16:17
PROVIDERS: Emergency Medicine
DX: R31.9 Hematuria, unspecified (principal); R07.9 Chest pain, unspecified; J44.9 Chronic obstructive pulmonary disease, unspecified; E11.9 Type 2 diabetes mellitus without complications
CPT/HCPCS: 71045; 74176; 80053; 81001; 84484; 85025; 87077; 87086; 87186; 93005; 93010; 99285-25

== ENCOUNTER → 2023-06-17 | Outpatient (CLI) | payer MEDICARE, OTHER ==
[2023-06-17 09:49] LABS: Source, Urine Clean Catch
[2023-06-17 12:45] LABS: Appearance, Urine Hazy (Clear); Bilirubin, Urine Neg (Neg); Blood, Urine 4+ (Neg); Color, Urine Yellow (P-Yellow); Glucose Qualitative, Urine Neg (Neg); Ketones, Urine Neg (Neg); Leukocyte Esterase, Urine Neg (Neg); Nitrite, Urine Neg (Neg); Protein, Urine 1+ (Neg); Specific Gravity, Urine 1.015 (1.003-1.022); Urobilinogen, Urine NORM (Normal)
[2023-06-17 13:11] LABS: Red Blood Cells, Urine 25-50 /hpf (0-2); Squamous Epithelial Cells Few /hpf (Few)
[2023-06-17 13:12] LABS: Bacteria Few /hpf
[2023-06-17 13:14] LABS: Transitional Epithelial Cells Rare /hpf (0-Rare)
[2023-06-17 13:15] LABS: Mucus Light (0-Heavy)
== END | disposition home or self-care (01) ==
LOC: LAB 09:46 → LAB SHORT 09:46
PROVIDERS: Nurse Practitioner Family
DX: R30.0 Dysuria (principal)
CPT/HCPCS: 81001; 87086

== ENCOUNTER → 2023-06-20 | Outpatient (CLI) | payer MEDICARE, OTHER | LOC: LAB 13:14 → LAB SHORT 13:14 | DX: R31.9 Hematuria, unspecified (principal) | CPT/HCPCS: 87086 ==

== ENCOUNTER 2023-09-13 23:32 | Observation (INO) | payer MEDICARE, OTHER ==
[~2023-09-13] VITALS: Ht 167.6 cm; Wt 75.1 kg
[2023-09-13] MEDS ORDERED: DiphenhydrAMINE HCl 50 MG/ML 1ML Vial ONE (23:44)
[2023-09-13] MEDS ORDERED: MethylPREDNISolone Sod Succ 125 MG Vial ONE (23:44)
[2023-09-13] MEDS ORDERED: MethylPREDNISolone Sod Succ 125 MG Vial IV ONE (23:45)
[2023-09-13] MEDS ORDERED: DiphenhydrAMINE HCl 50 MG/ML 1ML Vial IV ONE (23:45)
[2023-09-13] MEDS ORDERED: Famotidine 10 MG/ML 2ML Vial IV ONE (23:45)
[2023-09-13 23:51] LABS: BASOPHILS ABSOLUTE AUTO 0.02 K/mm3 (0.00-0.23); BASOPHILS PERCENT AUTO 0 % (0-2); EOSINOPHILS ABSOLUTE AUTO 0.11 K/mm3 (0.00-0.68); EOSINOPHILS PERCENT AUTO 2 % (0-6); Hematocrit 36.6 % (33.0-51.0); Hemoglobin 11.7 g/dL (11.5-16.0); IMMATURE GRAN ABSOLUTE AUTO 0.01 K/mm3 (0.00-0.10); IMMATURE GRAN PERCENT AUTO 0 % (0-1); LYMPHOCYTES ABSOLUTE AUTO 2.57 K/mm3 (0.84-5.20); LYMPHOCYTES PERCENT AUTO 45 % (21-46); MONOCYTES ABSOLUTE AUTO 0.43 K/mm3 (0.16-1.47); MONOCYTES PERCENT AUTO 8 % (4-13); Mean Corpuscular HGB 27.5 pg (26.0-34.0); Mean Corpuscular Volume 86 fL (80-100); Mean Platelet Volume 9.8 fL (9.1-12.4); NEUTROPHILS ABSOLUTE AUTO 2.52 K/mm3 (1.96-9.15); NEUTROPHILS PERCENT AUTO 45 % (41-73); Platelet Count 216 K/mm3 (150-400); RDW Coefficient Variation 14.8 % (11.7-14.2); RDW Standard Deviation 46.7 fL (35.1-46.3); Red Blood Cell Count 4.25 M/mm3 (3.80-5.20); White Blood Cell Count 5.66 K/mm3 (4.00-11.30)
[2023-09-14 00:07] LABS: Bun/Creatinine Ratio 23.5 (12.0-20.0); Calcium, Blood 8.7 mg/dL (8.5-10.1); Creatinine, Blood 0.98 mg/dL (0.40-1.00); Potassium, Blood 3.9 mmol/L (3.5-5.5)
[2023-09-14] MEDS ORDERED: ESCI10 PO (00:26)
[2023-09-14] MEDS ORDERED: ALBU90OI INH (00:26)
[2023-09-14] MEDS ORDERED: HYDRA25 PO (00:26)
[2023-09-14] MEDS ORDERED: METO25ER PO (00:27)
[2023-09-14] MEDS ORDERED: METF500C PO (00:27)
[2023-09-14] MEDS ORDERED: LEVE500 PO (00:27)
[2023-09-14] MEDS ORDERED: LOSA25 PO (00:27)
[2023-09-14] MEDS ORDERED: MIRAPEX ER0.75 MG PO (00:28)
[2023-09-14] MEDS ORDERED: PRAVASTATIN SOD40 MG PO (00:28)
[2023-09-14] MEDS ORDERED: NITR.4SL SL (00:28)
[2023-09-14] MEDS ORDERED: OMEP20ER PO (00:28)
[2023-09-14] MEDS ORDERED: ACET500 PO (00:29)
[2023-09-14] MEDS ORDERED: XARELTO15 MG PO (00:29)
[2023-09-14] MEDS ORDERED: Aspirin 325 MG Tab PO ONE (04:00)
[2023-09-14] MEDS ORDERED: FLU VACC QS2023-24(6MOS UP)/PF 60 MCG/0.5 ML SYRINGE IM ONE (04:45)
[2023-09-14] MEDS ORDERED: Ondansetron HCl 2 MG / ML 2ML Vial IV PRN (04:45)
[2023-09-14] MEDS ORDERED: Acetaminophen 325 MG TABLET PO PRN (04:45)
[2023-09-14] MEDS ORDERED: Nitroglycerin 0.4 MG SUBL SL PRN (04:45)
[2023-09-14 05:49] LABS: BASOPHILS ABSOLUTE AUTO 0.01 K/mm3 (0.00-0.23); BASOPHILS PERCENT AUTO 0 % (0-2); EOSINOPHILS PERCENT AUTO 0 % (0-6); Hematocrit 40.2 % (33.0-51.0); IMMATURE GRAN ABSOLUTE AUTO 0.02 K/mm3 (0.00-0.10); IMMATURE GRAN PERCENT AUTO 0 % (0-1); LYMPHOCYTES ABSOLUTE AUTO 0.74 K/mm3 (0.84-5.20); LYMPHOCYTES PERCENT AUTO 13 % (21-46); MONOCYTES ABSOLUTE AUTO 0.04 K/mm3 (0.16-1.47); MONOCYTES PERCENT AUTO 1 % (4-13); Mean Corpuscular HGB 27.3 pg (26.0-34.0); Mean Corpuscular HGB Conc 32.3 g/dL (31.5-36.5); Mean Corpuscular Volume 84 fL (80-100); Mean Platelet Volume 9.7 fL (9.1-12.4); NEUTROPHILS ABSOLUTE AUTO 4.98 K/mm3 (1.96-9.15); NEUTROPHILS PERCENT AUTO 86 % (41-73); Platelet Count 229 K/mm3 (150-400); RDW Coefficient Variation 14.6 % (11.7-14.2); RDW Standard Deviation 44.9 fL (35.1-46.3); Red Blood Cell Count 4.77 M/mm3 (3.80-5.20); White Blood Cell Count 5.79 K/mm3 (4.00-11.30)
[2023-09-14 06:12] VITALS: BP 194/93
[2023-09-14 06:27] LABS: Albumin, Blood 3.9 g/dL (3.4-5.0); Albumin/Globulin Ratio 1.1 (0.8-1.8); Bilirubin, Total 0.3 mg/dL (0.1-1.0); Bun/Creatinine Ratio 22.4 (12.0-20.0); Calcium, Blood 9.1 mg/dL (8.5-10.1); Creatinine, Blood 0.98 mg/dL (0.40-1.00); Globulin, Blood 3.7 g/dL (2.2-4.0); Magnesium, Blood 1.8 mg/dL (1.6-2.4); Total Protein, Blood 7.6 g/dL (6.4-8.2)
[2023-09-14 07:25] VITALS: BP 171/87
--- NOTE | 2023-09-14 07:47 | NUR ---
PT ARRIVED TO THE UNIT AT 0615, PT ABLE TO AMBULATE FROM W/C TO HOSPITAL BED WITH ASSISTANCE FROM 2 CAREGIVERS. PT HAD UNSTEADY AND WOOBLY GAIT. PT A&O x4, AFEBRILE, ON RA. BP ELEVATED, PT HAS SCHEDULED MEDICATIONS, WILL RELAY THIS TO DAY SHIFT RN AND RECHECK BP. PT DENIED CHEST PAIN, NO SOB, HOWEVER SLIGHT ARIAS PRESENT. NO SKIN ISSUES NOTED. PT ADMITTED FOR CHEST PAIN, TO RULE OUT STROKE. PT ABLE TO FOLLOW COMMANDS, AND ANSWER ASSESSMENT QUESTIONS APPROPRIATELY. SPEECH MOSTLY CLEAR, WITH SOME STUTTERING. PT VERY PLEASANT AND TALKATIVE ABLE TO RECALL EVENTS WHEN SHE CALLED EMS. PT ABLE TO MAKE NEEDS KNOWN, CALL LIGHT WITHIN REACH, [facility].
[2023-09-14] MEDS ORDERED: Metoprolol Tartrate 25 MG Tab PO SCH (09:00)
[2023-09-14] MEDS ORDERED: Aspirin 81 MG Chew PO SCH (09:00)
[2023-09-14] MEDS ORDERED: Losartan Potassium 25 MG Tab PO SCH (09:00)
[2023-09-14] MEDS ORDERED: HydrALAZINE HCl 25 MG Tab PO SCH (09:00)
[2023-09-14] MEDS ORDERED: Citalopram Hydrobromide 20 MG Tab PO SCH (09:00)
[2023-09-14] MEDS ORDERED: LevETIRAcetam 500 MG Tab PO SCH (09:00)
--- NOTE | 2023-09-14 18:18 | NUR ---
SHIFT SUMMARY AND DISCHARGE PATIENT ALERT AND INTERACTIVE. PATIENT WANTING TO GO HOME. DISCHARGE INSTRUCTIONS REVIEWED WITH PATIENT. IV'S DC'D PRIOR TO DISCHARGE. BELONGINGS RETURNED TO PATIENT. ROOM CHECK DONE WITH PATIENT PRIOR TO DISCHARGE. PATIENT TAKEN OUT VIA WHEELCHAIR.
[2023-09-14] MEDS ORDERED: Pravastatin Sodium 20 MG Tab PO SCH (21:00)
[2023-09-14] MEDS ORDERED: Pramipexole DI-HCL 0.125 MG Tab PO SCH (21:00)
== END 2023-09-14 12:19 | disposition home or self-care (01) ==
LOC: ER 23:32 → MEDS 23:33 → ENPENDDIS 09-14 11:51 → MEDS 09-14 12:19
PROVIDERS: Emergency Medicine; ADMIT Student in an Organized Health Care Education/Training Program
DX: R07.89 Other chest pain (principal); Z85.3 Personal history of malignant neoplasm of breast; Z86.73 Personal history of transient ischemic attack (TIA), and cerebral infarction without residual deficits; E11.9 Type 2 diabetes mellitus without complications; I10 Essential (primary) hypertension; E78.5 Hyperlipidemia, unspecified; Z86.711 Personal history of pulmonary embolism; F41.9 Anxiety disorder, unspecified; K21.9 Gastro-esophageal reflux disease without esophagitis; G25.81 Restless legs syndrome; Z88.5 Allergy status to narcotic agent; Z88.2 Allergy status to sulfonamides; Z88.8 Allergy status to other drugs, medicaments and biological substances; Z91.041 Radiographic dye allergy status
CPT/HCPCS: 70450; 70496; 70498; 71275; 80048; 80053; 82947; 83735; 84484; 85025; 96374-59; 96375-59; 99285-25; A9270; J1200; J2930; Q9967

== ENCOUNTER 2023-11-17 12:11 | Emergency (ER) | payer MEDICARE, OTHER ==
[~2023-11-17] VITALS: Ht 167.6 cm; Wt 72.6 kg
[~2023-11-17 12:11] MED LIST changes: +ESCI10 PO; +LEVE500 PO; +LOSA25 PO; +MIRAPEX ER0.75 MG PO; +PRAVASTATIN SOD40 MG PO
[2023-11-17] MEDS ORDERED: Metoprolol Tartrate 1 MG/ML 5 ML VIAL IV ONE (12:30)
[2023-11-17 12:44] LABS: BASOPHILS ABSOLUTE AUTO 0.02 K/mm3 (0.00-0.23); BASOPHILS PERCENT AUTO 0 % (0-2); EOSINOPHILS ABSOLUTE AUTO 0.07 K/mm3 (0.00-0.68); EOSINOPHILS PERCENT AUTO 1 % (0-6); Hematocrit 38.9 % (33.0-51.0); Hemoglobin 12.3 g/dL (11.5-16.0); IMMATURE GRAN ABSOLUTE AUTO 0.01 K/mm3 (0.00-0.10); IMMATURE GRAN PERCENT AUTO 0 % (0-1); LYMPHOCYTES ABSOLUTE AUTO 1.43 K/mm3 (0.84-5.20); LYMPHOCYTES PERCENT AUTO 28 % (21-46); MONOCYTES PERCENT AUTO 6 % (4-13); Mean Corpuscular HGB 27.8 pg (26.0-34.0); Mean Corpuscular HGB Conc 31.6 g/dL (31.5-36.5); Mean Corpuscular Volume 88 fL (80-100); Mean Platelet Volume 9.8 fL (9.1-12.4); NEUTROPHILS ABSOLUTE AUTO 3.37 K/mm3 (1.96-9.15); NEUTROPHILS PERCENT AUTO 65 % (41-73); Platelet Count 223 K/mm3 (150-400); RDW Coefficient Variation 14.7 % (11.7-14.2); RDW Standard Deviation 47.8 fL (35.1-46.3); Red Blood Cell Count 4.42 M/mm3 (3.80-5.20)
[2023-11-17 13:13] LABS: Albumin, Blood 3.6 g/dL (3.4-5.0); Bilirubin, Total 0.4 mg/dL (0.1-1.0); Bun/Creatinine Ratio 23.8 (12.0-20.0); Calcium, Blood 8.8 mg/dL (8.5-10.1); Creatinine, Blood 0.97 mg/dL (0.40-1.00); Globulin, Blood 3.5 g/dL (2.2-4.0); Potassium, Blood 4.4 mmol/L (3.5-5.5); Total Protein, Blood 7.1 g/dL (6.4-8.2)
[2023-11-17] MEDS ORDERED: HydrALAZINE HCl 20 MG / ML 1ML Vial IV ONE (14:10)
[2023-11-17 14:40] VITALS: BP 144/77
== END 2023-11-17 14:45 | disposition home or self-care (01) ==
LOC: ER 12:11
PROVIDERS: Emergency Medicine
DX: R20.2 Paresthesia of skin (principal); F41.9 Anxiety disorder, unspecified; R51.9 Headache, unspecified; J44.9 Chronic obstructive pulmonary disease, unspecified; E11.9 Type 2 diabetes mellitus without complications; K21.9 Gastro-esophageal reflux disease without esophagitis; E78.5 Hyperlipidemia, unspecified; Z85.3 Personal history of malignant neoplasm of breast
CPT/HCPCS: 70450; 80053; 84484; 85025; 93005; 93010; 96374; 96375; 99285-25; J0360

== ENCOUNTER 2024-01-06 11:16 | Emergency (ER) | payer MEDICARE, OTHER ==
[~2024-01-06] VITALS: Ht 167.6 cm; Wt 77.1 kg
[2024-01-06] MEDS ORDERED: Cymbalta20 MG PO (11:38)
[2024-01-06] MEDS ORDERED: DONEPEZIL HCL5 M2 PO (11:39)
[2024-01-06] MEDS ORDERED: VITAMIN D350 MC3 PO (11:41)
[2024-01-06 11:43] LABS: BASOPHILS ABSOLUTE AUTO 0.03 K/mm3 (0.00-0.23); BASOPHILS PERCENT AUTO 1 % (0-2); EOSINOPHILS ABSOLUTE AUTO 0.11 K/mm3 (0.00-0.68); EOSINOPHILS PERCENT AUTO 2 % (0-6); Hematocrit 40.4 % (33.0-51.0); IMMATURE GRAN ABSOLUTE AUTO 0.01 K/mm3 (0.00-0.10); IMMATURE GRAN PERCENT AUTO 0 % (0-1); LYMPHOCYTES ABSOLUTE AUTO 1.74 K/mm3 (0.84-5.20); LYMPHOCYTES PERCENT AUTO 34 % (21-46); MONOCYTES ABSOLUTE AUTO 0.38 K/mm3 (0.16-1.47); MONOCYTES PERCENT AUTO 7 % (4-13); Mean Corpuscular HGB 28.3 pg (26.0-34.0); Mean Corpuscular HGB Conc 32.2 g/dL (31.5-36.5); Mean Corpuscular Volume 88 fL (80-100); Mean Platelet Volume 9.9 fL (9.1-12.4); NEUTROPHILS ABSOLUTE AUTO 2.84 K/mm3 (1.96-9.15); NEUTROPHILS PERCENT AUTO 56 % (41-73); Platelet Count 252 K/mm3 (150-400); RDW Coefficient Variation 14.4 % (11.7-14.2); RDW Standard Deviation 46.1 fL (35.1-46.3); White Blood Cell Count 5.11 K/mm3 (4.00-11.30)
[2024-01-06] MEDS ORDERED: PRAM.125 PO (11:43)
[2024-01-06] MEDS ORDERED: IRON PO (11:46)
[2024-01-06] MEDS ORDERED: MELATONIN5 MG PO (11:47)
[2024-01-06] MEDS ORDERED: DOC250 PO (11:49)
[2024-01-06] MEDS ORDERED: MAGNESIUM (11:49)
[2024-01-06] MEDS ORDERED: B-121000 MC7 PO (11:50)
[2024-01-06 11:53] LABS: Bun/Creatinine Ratio 25.7 (12.0-20.0); Calcium, Blood 9.4 mg/dL (8.5-10.1); Creatinine, Blood 0.94 mg/dL (0.40-1.00); Potassium, Blood 4.9 mmol/L (3.5-5.5)
[2024-01-06 13:20] VITALS: BP 172/89
== END 2024-01-06 13:25 | disposition home or self-care (01) ==
LOC: ER 11:16
PROVIDERS: Emergency Medicine
DX: R51.9 Headache, unspecified (principal); S09.90XA Unspecified injury of head, initial encounter; Y33.XXXA Other specified events, undetermined intent, initial encounter; J44.9 Chronic obstructive pulmonary disease, unspecified; F01.50 Vascular dementia, unspecified severity, without behavioral disturbance, psychotic disturbance, mood disturbance, and anxiety; I10 Essential (primary) hypertension; E11.9 Type 2 diabetes mellitus without complications; E78.5 Hyperlipidemia, unspecified; K21.9 Gastro-esophageal reflux disease without esophagitis; I69.920 Aphasia following unspecified cerebrovascular disease; Z79.01 Long term (current) use of anticoagulants; Z79.899 Other long term (current) drug therapy; Z88.2 Allergy status to sulfonamides; Z88.8 Allergy status to other drugs, medicaments and biological substances
CPT/HCPCS: 70450; 80048; 85025; 99284-25

== ENCOUNTER 2024-04-23 12:32 | Emergency (ER) | payer MEDICARE, OTHER ==
[~2024-04-23] VITALS: Ht 170.2 cm; Wt 90.7 kg
[~2024-04-23 12:32] MED LIST changes: +B-121000 MC7 PO; +Cymbalta20 MG PO; +DONEPEZIL HCL5 M2 PO; +IRON PO; +MAGNESIUM; +MELATONIN5 MG PO; +VITAMIN D350 MC3 PO
[2024-04-23 12:37] VITALS: BP 198/89
[2024-04-23] MEDS ORDERED: Acetaminophen 500 MG Tab PO ONE (12:40)
[2024-04-23 12:57] LABS: BASOPHILS ABSOLUTE AUTO 0.03 K/mm3 (0.00-0.23); BASOPHILS PERCENT AUTO 1 % (0-2); EOSINOPHILS ABSOLUTE AUTO 0.16 K/mm3 (0.00-0.68); EOSINOPHILS PERCENT AUTO 3 % (0-6); Hematocrit 42.2 % (33.0-51.0); Hemoglobin 13.6 g/dL (11.5-16.0); IMMATURE GRAN ABSOLUTE AUTO 0.02 K/mm3 (0.00-0.10); IMMATURE GRAN PERCENT AUTO 0 % (0-1); LYMPHOCYTES ABSOLUTE AUTO 1.88 K/mm3 (0.84-5.20); LYMPHOCYTES PERCENT AUTO 31 % (21-46); MONOCYTES ABSOLUTE AUTO 0.68 K/mm3 (0.16-1.47); MONOCYTES PERCENT AUTO 11 % (4-13); Mean Corpuscular HGB 28.3 pg (26.0-34.0); Mean Corpuscular HGB Conc 32.2 g/dL (31.5-36.5); Mean Corpuscular Volume 88 fL (80-100); NEUTROPHILS ABSOLUTE AUTO 3.32 K/mm3 (1.96-9.15); NEUTROPHILS PERCENT AUTO 55 % (41-73); Platelet Count 213 K/mm3 (150-400); RDW Coefficient Variation 13.8 % (11.7-14.2); RDW Standard Deviation 44.6 fL (35.1-46.3); White Blood Cell Count 6.09 K/mm3 (4.00-11.30)
[2024-04-23] MEDS ORDERED: Prochlorperazine Edisylate 10 mg Vial IV ONE (13:10)
[2024-04-23] MEDS ORDERED: DiphenhydrAMINE HCl 50 MG/ML 1ML Vial IV ONE (13:10)
[2024-04-23 13:35] LABS: Albumin, Blood 3.5 g/dL (3.4-5.0); Albumin/Globulin Ratio 0.8 (0.8-1.8); Bilirubin, Total 0.3 mg/dL (0.1-1.0); Creatinine, Blood 1.32 mg/dL (0.40-1.00); Globulin, Blood 4.2 g/dL (2.2-4.0); Potassium, Blood 4.9 mmol/L (3.5-5.5); Total Protein, Blood 7.7 g/dL (6.4-8.2)
== END 2024-04-23 14:09 | disposition home or self-care (01) ==
LOC: ER 12:32
PROVIDERS: Emergency Medicine
DX: I16.0 Hypertensive urgency (principal); R42 Dizziness and giddiness; Z88.8 Allergy status to other drugs, medicaments and biological substances; Z88.2 Allergy status to sulfonamides; Z88.1 Allergy status to other antibiotic agents; Z88.5 Allergy status to narcotic agent; Z79.899 Other long term (current) drug therapy; J44.9 Chronic obstructive pulmonary disease, unspecified; E11.9 Type 2 diabetes mellitus without complications; Z85.3 Personal history of malignant neoplasm of breast; K21.9 Gastro-esophageal reflux disease without esophagitis; E78.5 Hyperlipidemia, unspecified
CPT/HCPCS: 70450; 80053; 85025; 99285-25; A9270

== ENCOUNTER → 2024-05-17 | Outpatient (CLI) | payer MEDICARE, OTHER ==
[2024-05-17 12:19] LABS: BASOPHILS ABSOLUTE AUTO 0.02 K/mm3 (0.00-0.23); BASOPHILS PERCENT AUTO 0 % (0-2); EOSINOPHILS ABSOLUTE AUTO 0.09 K/mm3 (0.00-0.68); EOSINOPHILS PERCENT AUTO 1 % (0-6); Hematocrit 42.1 % (33.0-51.0); Hemoglobin 13.7 g/dL (11.5-16.0); IMMATURE GRAN ABSOLUTE AUTO 0.03 K/mm3 (0.00-0.10); IMMATURE GRAN PERCENT AUTO 0 % (0-1); LYMPHOCYTES ABSOLUTE AUTO 1.66 K/mm3 (0.84-5.20); LYMPHOCYTES PERCENT AUTO 23 % (21-46); MONOCYTES ABSOLUTE AUTO 0.54 K/mm3 (0.16-1.47); MONOCYTES PERCENT AUTO 8 % (4-13); Mean Corpuscular HGB 28.7 pg (26.0-34.0); Mean Corpuscular HGB Conc 32.5 g/dL (31.5-36.5); Mean Corpuscular Volume 88 fL (80-100); Mean Platelet Volume 9.7 fL (9.1-12.4); NEUTROPHILS ABSOLUTE AUTO 4.81 K/mm3 (1.96-9.15); NEUTROPHILS PERCENT AUTO 67 % (41-73); Platelet Count 219 K/mm3 (150-400); RDW Coefficient Variation 13.9 % (11.7-14.2); RDW Standard Deviation 44.9 fL (35.1-46.3); Red Blood Cell Count 4.78 M/mm3 (3.80-5.20); White Blood Cell Count 7.15 K/mm3 (4.00-11.30)
[2024-05-17 13:07] LABS: Albumin, Blood 3.8 g/dL (3.4-5.0); Bilirubin, Total 0.3 mg/dL (0.1-1.0); Bun/Creatinine Ratio 21.3 (12.0-20.0); Calcium, Blood 9.6 mg/dL (8.5-10.1); Creatinine, Blood 1.22 mg/dL (0.40-1.00); Globulin, Blood 3.8 g/dL (2.2-4.0); Potassium, Blood 4.4 mmol/L (3.5-5.5); Total Protein, Blood 7.6 g/dL (6.4-8.2)
== END ==
LOC: LAB 12:14 → LAB SHORT 12:14
PROVIDERS: Physician Assistant
DX: K92.2 Gastrointestinal hemorrhage, unspecified (principal)
CPT/HCPCS: 80053; 83690; 85025

== ENCOUNTER → 2024-05-18 | Outpatient (CLI) | payer MEDICARE, OTHER ==
[2024-05-18 11:28] LABS: BASOPHILS ABSOLUTE AUTO 0.02 K/mm3 (0.00-0.23); BASOPHILS PERCENT AUTO 0 % (0-2); EOSINOPHILS PERCENT AUTO 2 % (0-6); Hemoglobin 13.5 g/dL (11.5-16.0); IMMATURE GRAN ABSOLUTE AUTO 0.02 K/mm3 (0.00-0.10); IMMATURE GRAN PERCENT AUTO 0 % (0-1); LYMPHOCYTES ABSOLUTE AUTO 1.73 K/mm3 (0.84-5.20); LYMPHOCYTES PERCENT AUTO 27 % (21-46); MONOCYTES ABSOLUTE AUTO 0.56 K/mm3 (0.16-1.47); MONOCYTES PERCENT AUTO 9 % (4-13); Mean Corpuscular HGB 28.4 pg (26.0-34.0); Mean Corpuscular HGB Conc 32.1 g/dL (31.5-36.5); Mean Corpuscular Volume 88 fL (80-100); Mean Platelet Volume 9.6 fL (9.1-12.4); NEUTROPHILS ABSOLUTE AUTO 3.93 K/mm3 (1.96-9.15); NEUTROPHILS PERCENT AUTO 62 % (41-73); Platelet Count 212 K/mm3 (150-400); Red Blood Cell Count 4.76 M/mm3 (3.80-5.20); White Blood Cell Count 6.36 K/mm3 (4.00-11.30)
== END | disposition home or self-care (01) ==
LOC: LAB SHORT 11:25 → LAB 11:25
PROVIDERS: Physician Assistant
DX: K92.2 Gastrointestinal hemorrhage, unspecified (principal)
CPT/HCPCS: 85025

== ENCOUNTER → 2024-05-20 | Outpatient (CLI) | payer MEDICARE, OTHER ==
[2024-05-20 16:19] LABS: BASOPHILS ABSOLUTE AUTO 0.03 K/mm3 (0.00-0.23); BASOPHILS PERCENT AUTO 0 % (0-2); EOSINOPHILS ABSOLUTE AUTO 0.12 K/mm3 (0.00-0.68); EOSINOPHILS PERCENT AUTO 2 % (0-6); Hematocrit 41.8 % (33.0-51.0); Hemoglobin 13.5 g/dL (11.5-16.0); IMMATURE GRAN ABSOLUTE AUTO 0.01 K/mm3 (0.00-0.10); IMMATURE GRAN PERCENT AUTO 0 % (0-1); LYMPHOCYTES PERCENT AUTO 24 % (21-46); MONOCYTES ABSOLUTE AUTO 0.56 K/mm3 (0.16-1.47); MONOCYTES PERCENT AUTO 8 % (4-13); Mean Corpuscular HGB 28.5 pg (26.0-34.0); Mean Corpuscular HGB Conc 32.3 g/dL (31.5-36.5); Mean Corpuscular Volume 88 fL (80-100); Mean Platelet Volume 9.9 fL (9.1-12.4); NEUTROPHILS ABSOLUTE AUTO 4.54 K/mm3 (1.96-9.15); NEUTROPHILS PERCENT AUTO 65 % (41-73); Platelet Count 227 K/mm3 (150-400); RDW Coefficient Variation 14.1 % (11.7-14.2); RDW Standard Deviation 45.6 fL (35.1-46.3); Red Blood Cell Count 4.73 M/mm3 (3.80-5.20); White Blood Cell Count 6.96 K/mm3 (4.00-11.30)
== END | disposition home or self-care (01) ==
LOC: LAB 16:15 → LAB SHORT 16:15
PROVIDERS: Family Medicine
DX: K62.5 Hemorrhage of anus and rectum (principal)
CPT/HCPCS: 85025

== ENCOUNTER 2024-12-07 10:37 | Emergency (ER) | payer MEDICARE, OTHER ==
[~2024-12-07] VITALS: Ht 170.2 cm; Wt 88.5 kg
[2024-12-07 10:59] LABS: BASOPHILS ABSOLUTE AUTO 0.02 K/mm3 (0.00-0.23); BASOPHILS PERCENT AUTO 0 % (0-2); EOSINOPHILS PERCENT AUTO 2 % (0-6); Hematocrit 41.5 % (33.0-51.0); Hemoglobin 13.7 g/dL (11.5-16.0); IMMATURE GRAN ABSOLUTE AUTO 0.01 K/mm3 (0.00-0.10); IMMATURE GRAN PERCENT AUTO 0 % (0-1); LYMPHOCYTES ABSOLUTE AUTO 2.23 K/mm3 (0.84-5.20); LYMPHOCYTES PERCENT AUTO 33 % (21-46); MONOCYTES ABSOLUTE AUTO 0.56 K/mm3 (0.16-1.47); MONOCYTES PERCENT AUTO 8 % (4-13); Mean Corpuscular HGB 29.7 pg (26.0-34.0); Mean Corpuscular Volume 90 fL (80-100); Mean Platelet Volume 10.1 fL (9.1-12.4); NEUTROPHILS ABSOLUTE AUTO 3.92 K/mm3 (1.96-9.15); NEUTROPHILS PERCENT AUTO 57 % (41-73); Platelet Count 238 K/mm3 (150-400); RDW Coefficient Variation 14.2 % (11.7-14.2); RDW Standard Deviation 46.6 fL (35.1-46.3); Red Blood Cell Count 4.61 M/mm3 (3.80-5.20); White Blood Cell Count 6.84 K/mm3 (4.00-11.30)
[2024-12-07] MEDS ORDERED: PANT40 PO (11:22)
[2024-12-07] MEDS ORDERED: MAGNESIUM OXID400 M1 PO (11:23)
[2024-12-07] MEDS ORDERED: Retin-A20 G2 TOP (11:23)
[2024-12-07] MEDS ORDERED: MYRBETRIQ50 MG PO (11:24)
[2024-12-07] MEDS ORDERED: ONDA4ODT MM (11:24)
[2024-12-07] MEDS ORDERED: FERSU300 PO (11:24)
[2024-12-07] MEDS ORDERED: LIDO700A20 TOP (11:25)
[2024-12-07] MEDS ORDERED: KETO15TC TOP (11:25)
[2024-12-07] MEDS ORDERED: FLUTICASONE-SA1 EAC1 INH (11:25)
[2024-12-07] MEDS ORDERED: HYDROCORTISONE30 GM EXT (11:25)
[2024-12-07] MEDS ORDERED: CALCIPOTRIENE60 G3 TOP (11:26)
[2024-12-07] MEDS ORDERED: Tessalon200 MG PO (11:26)
[2024-12-07] MEDS ORDERED: CLIN1TS TOP (11:26)
[2024-12-07] MEDS ORDERED: ABILIFY MYCITE5 M1 PO (11:26)
[2024-12-07] MEDS ORDERED: DICLOFENAC SOD100 GM TP (11:27)
[2024-12-07 11:36] LABS: Albumin, Blood 3.7 g/dL (3.4-5.0); Bilirubin, Total 0.4 mg/dL (0.1-1.0); Bun/Creatinine Ratio 22.1 (12.0-20.0); Calcium, Blood 9.4 mg/dL (8.5-10.1); Creatinine, Blood 1.4 mg/dL (0.40-1.00); Globulin, Blood 3.6 g/dL (2.2-4.0); Potassium, Blood 4.8 mmol/L (3.5-5.5); Total Protein, Blood 7.3 g/dL (6.4-8.2)
[2024-12-07] MEDS ORDERED: Nitroglycerin Patch 0.4 MG / HR TOP PRN (11:40)
[2024-12-07] MEDS ORDERED: Nitroglycerin 0.4 MG SUBL SL PRN (11:45)
[2024-12-07 13:11] VITALS: BP 113/64
== END 2024-12-07 14:30 | disposition home or self-care (01) ==
LOC: ER 10:37
PROVIDERS: Emergency Medicine
DX: R07.9 Chest pain, unspecified (principal); R51.9 Headache, unspecified; I69.320 Aphasia following cerebral infarction; J44.9 Chronic obstructive pulmonary disease, unspecified; E11.9 Type 2 diabetes mellitus without complications; K21.9 Gastro-esophageal reflux disease without esophagitis; E78.5 Hyperlipidemia, unspecified; I25.10 Atherosclerotic heart disease of native coronary artery without angina pectoris; F01.50 Vascular dementia, unspecified severity, without behavioral disturbance, psychotic disturbance, mood disturbance, and anxiety; Z86.711 Personal history of pulmonary embolism; Z66 Do not resuscitate; Z88.2 Allergy status to sulfonamides; Z88.8 Allergy status to other drugs, medicaments and biological substances; Z88.6 Allergy status to analgesic agent; Z91.041 Radiographic dye allergy status; Z88.5 Allergy status to narcotic agent; Z79.01 Long term (current) use of anticoagulants; Z79.899 Other long term (current) drug therapy
CPT/HCPCS: 70450; 71045; 80053; 84484; 85025; 93005; 93010; 99285-25; A9270

== ENCOUNTER 2025-02-08 10:19 | Emergency (ER) | payer MEDICARE, OTHER ==
[~2025-02-08] VITALS: Ht 170.2 cm; Wt 86.2 kg
[~2025-02-08 10:19] MED LIST changes: +ABILIFY MYCITE5 M1 PO; +CALCIPOTRIENE60 G3 TOP; +CLIN1TS TOP; +DICLOFENAC SOD100 GM TP; +FERSU300 PO; +FLUTICASONE-SA1 EAC1 INH; +HYDROCORTISONE30 GM EXT; +KETO15TC TOP; +LIDO700A20 TOP; +MAGNESIUM OXID400 M1 PO; +MYRBETRIQ50 MG PO; +ONDA4ODT MM; +PANT40 PO; +Retin-A20 G2 TOP; +Tessalon200 MG PO
[2025-02-08 11:20] LABS: BASOPHILS ABSOLUTE AUTO 0.02 K/mm3 (0.00-0.23); BASOPHILS PERCENT AUTO 0 % (0-2); EOSINOPHILS ABSOLUTE AUTO 0.07 K/mm3 (0.00-0.68); EOSINOPHILS PERCENT AUTO 1 % (0-6); Hematocrit 42.7 % (33.0-51.0); Hemoglobin 13.7 g/dL (11.5-16.0); IMMATURE GRAN ABSOLUTE AUTO 0.01 K/mm3 (0.00-0.10); IMMATURE GRAN PERCENT AUTO 0 % (0-1); LYMPHOCYTES ABSOLUTE AUTO 1.80 K/mm3 (0.84-5.20); LYMPHOCYTES PERCENT AUTO 32 % (21-46); MONOCYTES ABSOLUTE AUTO 0.45 K/mm3 (0.16-1.47); MONOCYTES PERCENT AUTO 8 % (4-13); Mean Corpuscular HGB Conc 32.1 g/dL (31.5-36.5); Mean Corpuscular Volume 91 fL (80-100); NEUTROPHILS ABSOLUTE AUTO 3.37 K/mm3 (1.96-9.15); NEUTROPHILS PERCENT AUTO 59 % (41-73); NRBC ABSOLUTE 0.00 K/mm3 (0.00-0.02); NRBC Auto 0.0 /100 WBC (0.0-0.2); Platelet Count 231 K/mm3 (150-400); RDW Coefficient Variation 14.1 % (11.7-14.2); RDW Standard Deviation 47.3 fL (35.1-46.3)
[2025-02-08 11:37] LABS: Prothrombin Time Results 11.5 Sec (9.7-11.5)
[2025-02-08 11:39] LABS: Alanine Aminotransfer (ALT/SGP 31.0 U/L (12-78); Albumin, Blood 3.7 g/dL (3.4-5.0); Albumin/Globulin Ratio 0.9 (0.8-1.8); Anion Gap 2.0 mmol/L (3-11); Aspartate Aminotrans (AST/SGOT 20.0 U/L (12-37); Bilirubin, Total 0.4 mg/dL (0.1-1.0); Blood Urea Nitrogen 24.0 mg/dL (8-24); CO2, Blood 29.0 mmol/L (21-32); Calcium, Blood 9.3 mg/dL (8.5-10.1); Chloride, Blood 105.0 mmol/L (98-108); Creatinine, Blood 1.27 mg/dL (0.40-1.00); Globulin, Blood 3.9 g/dL (2.2-4.0); Glucose, Blood 115.0 mg/dL (70-99); Potassium, Blood 4.7 mmol/L (3.5-5.5); Sodium, Blood 131.0 mmol/L (136-145); Total Protein, Blood 7.6 g/dL (6.4-8.2)
[2025-02-08 12:17] VITALS: BP 127/70
== END 2025-02-08 13:37 | disposition home or self-care (01) ==
LOC: ER 10:19
PROVIDERS: Physician Assistant
DX: S93.401A Sprain of unspecified ligament of right ankle, initial encounter (principal); J44.9 Chronic obstructive pulmonary disease, unspecified; E11.9 Type 2 diabetes mellitus without complications; K21.9 Gastro-esophageal reflux disease without esophagitis; E78.5 Hyperlipidemia, unspecified; I69.320 Aphasia following cerebral infarction; I25.10 Atherosclerotic heart disease of native coronary artery without angina pectoris; F01.50 Vascular dementia, unspecified severity, without behavioral disturbance, psychotic disturbance, mood disturbance, and anxiety; Z86.711 Personal history of pulmonary embolism; Z59.89 Other problems related to housing and economic circumstances; Z88.2 Allergy status to sulfonamides; Z88.6 Allergy status to analgesic agent; Z91.041 Radiographic dye allergy status; Z88.5 Allergy status to narcotic agent; Z88.8 Allergy status to other drugs, medicaments and biological substances; Z79.01 Long term (current) use of anticoagulants; Z79.51 Long term (current) use of inhaled steroids; Z79.899 Other long term (current) drug therapy; X58.XXXA Exposure to other specified factors, initial encounter
CPT/HCPCS: 80053; 85025; 85610; 93926; 99283-25

== ENCOUNTER 2025-03-09 07:13 | Day surgery (SDC) | payer MEDICARE, OTHER ==
[~2025-03-09] VITALS: Ht 70.2 cm; Wt 87.1 kg
[2025-03-09] MEDS ORDERED: Vitamin C100 M1 (08:31)
[2025-03-09] MEDS ORDERED: BENZ100A (08:31)
[2025-03-09] MEDS ORDERED: Lidocaine HCl 4% 5 ML SDA ONE (09:13)
[2025-03-09 10:41] VITALS: BP 120/66
== END 2025-03-09 10:31 | disposition home or self-care (01) ==
LOC: ORSCSDS 07:13
PROVIDERS: Specialist
PROC: 0D758ZZ Dilation of Esophagus, Via Natural or Artificial Opening Endoscopic (ICD-10-PCS; principal; 2025-03-09 09:15)
DX: R13.10 Dysphagia, unspecified (principal); K44.9 Diaphragmatic hernia without obstruction or gangrene; E11.22 Type 2 diabetes mellitus with diabetic chronic kidney disease; I12.9 Hypertensive chronic kidney disease with stage 1 through stage 4 chronic kidney disease, or unspecified chronic kidney disease; N18.9 Chronic kidney disease, unspecified; Z86.711 Personal history of pulmonary embolism; Z86.73 Personal history of transient ischemic attack (TIA), and cerebral infarction without residual deficits; G25.81 Restless legs syndrome; G47.33 Obstructive sleep apnea (adult) (pediatric); I25.10 Atherosclerotic heart disease of native coronary artery without angina pectoris; Z79.01 Long term (current) use of anticoagulants; Z79.899 Other long term (current) drug therapy
CPT/HCPCS: 82947; C1769; J2003; J2704; J7120